=== PATIENT | male | born 1960 | race Caucasian/White ===

== ENCOUNTER 2024-01-28 09:43 | Outpatient (CLI) | payer MEDICAID, SELFPAY ==
--- NOTE | 2024-01-28 06:00 | DI.RAD_ITS ---
Exam(s) XR PAIN CLINIC LUMBAR SP 2V EXAM: XR PAIN CLINIC LUMBAR SP 2V CLINICAL HISTORY: DX: Lumbar Radiculopathy TECHNIQUE: 2D and realtime digital imaging was performed. Radiologist not present. CONTRAST MATERIAL: None. COMPARISON: No exams were available for comparison FINDINGS: Fluoroscopy was provided for pain management therapy. Please refer to procedure report or details. Radiation Exposure Index: Ka,r=9.97 mGy IMPRESSION: As above. RADIATION DOSE DELIVERED:
[2024-01-28 09:52] VITALS: BP 142/83; PULSE 88; RESP 20; TEMP 36.7; O2SAT 98
--- NOTE | 2024-01-28 10:19 | PDOC.PAIN_ITS ---
Date of service: 01/28/24 Time of Service: 10:55 Pain Managment Procedure Note Procedure Note Procedure Note: Lumbar Interlaminar Epidural Steroid Injection ? Location: Caudal ? Pre-procedure Diagnosis: M54.16- Radiculopathy, LUMBAR region ? Post-procedure Diagnosis:? The same as above ? Sedation:? 2mg of intravenous midazolam was administered.? An independent trained observer monitored the patient for the duration of the procedure.? None ? Medication: Depo-Medrol 80 mg, Omnipaque 1 mL ? Estimated blood loss:? less than 2 cc ? Surgeon:? Dedrick Nava MD COMMENT: Patient had previous attempts at [facility] for bilateral transforaminal's at L5 but had a abort because of too much pain. ? Procedure Detail:? The procedure and potential risks were explained to the patient and informed written consent was obtained. The patient was escorted to the procedure room and placed in the prone position. Pillows were utilized for proper positioning and comfort. Time out was performed in the procedure room with nursing staff confirming the patient's identity, procedure to be performed, allergies, and any blood thinning or anti-platelet medications.? The patient's neck and upper back was prepped with ChloraPrep and draped in a sterile fashion. Sterile technique was maintained throughout the procedure.? Sterile gloves were used, a face mask was worn, and new single dose vials of all medications were used with the top being swabbed with alcohol and given time to dry prior to withdrawal of medication. Lidocane 1% was used to anesthetize the skin.Using a 25-gauge 1.5 inch needle, 1% lidocaine was instilled into the superficial soft tissue overlying the targeted area to provide local anesthesia. With fluoroscopic guidance, a 17 -gauge Tuohy needle was advanced toward the interlaminar space of L5-S1. Spinous processes were very tight and I was unable to access the epidural space. Procedure was then converted to a caudal after repeat sterile prep and drape. Sacral hiatus was accessed without difficulty. Correct needle placement was confirmed through review of the AP and contralateral oblique fluoroscopic views. A 19-gauge arrow catheter was threaded cephalad to the midline L5 Following negative aspiration, one cc of Omnipaque 240 contrast was injected which confirmed good flow throughout the epidural space and no evidence of vascular flow or flow into adjacent compartments. Next, following negative aspiration, 2 cc's of normal saline and 80mg of Depo-Medrol and flushed with 1 mL 1% lidocaine. The needle was gently removed. The patient tolerated the proc edure well and was transported to the recovery area for observation and discharge instructions. Permanent images saved and recorded. Pain preprocedure 6/10 postprocedure 0/10 Plan:? Follow up prn. COMMENT: Repeat as needed
[2024-01-28 10:20] VITALS: PULSE 67
[2024-01-28 10:30] VITALS: PULSE 82; RESP 19
[2024-01-28 10:40] VITALS: PULSE 77; RESP 17; O2SAT 100
[2024-01-28] MEDS: methylPREDNISolone ACETATE 40 MG/ML VIAL IJ (11:00)
[2024-01-28] MEDS: Lidocaine 1% Pres-Free 5 ML VIAL IJ (11:00)
[2024-01-28] MEDS: Omnipaque 240 MG/ML 50 ML BTL IJ (11:01)
[2024-01-28] MEDS: Epidural Tray 1 EACH MC (11:01)
== END 2024-01-28 09:44 | disposition home or self-care (01) ==
LOC: PC 09:46
PROVIDERS: PCP Orthopaedic Surgery; Visit Provider Anesthesiology Pain Medicine
DX: M54.16 Radiculopathy, lumbar region (principal)
CPT/HCPCS: 00123; 62323; 72100; J1010; J2003; Q9967

== ENCOUNTER 2024-05-13 16:04 | Outpatient (CLI) | payer MEDICAID, SELFPAY ==
--- NOTE | 2024-05-13 14:30 | DI.RAD_ITS ---
Exam(s) XR HIP PELVIS ADULT BL EXAM: XR HIP PELVIS ADULT BL CLINICAL HISTORY: Bilateral hip pain, M25.551-pain in rt hip, M25.552-pain in lt hip. TECHNIQUE: 2D digital imaging was performed. Three views. COMPARISON: No exams were available for comparison FINDINGS: BONES: No acute fracture is present. No bony destructive lesion is seen. JOINTS: There is severe narrowing of both hip joint spaces, with a inkf-ex-rmmm appearance, right gre ater than left. There is flattening of the right femoral head and prominent spurring at the acetabul um. Subchondral cysts are seen on both sides of the joint. The left femoral head shows mild flatten ing. Subchondral cysts present. No dislocation present. SI joints and pubic symphysis are unremar kable. SOFT TISSUE: Vascular calcifications. IMPRESSION: Severe degenerative changes of both hips, right greater than left. DATA REPOSITORY: RADIATION DOSE DELIVERED:
--- OUTSIDE RECORDS SUMMARY | 2024-05-13 16:18 | XMS_ITS ---
Author Organization Unknown Address [address] [place] [address] [phone] Phone Care Team Providers Care Furniture Assembly Supervisor Name Role Phone HARIKA acosta Social History Type Status Start Date End Date Code Code Syst em Smoking History Current every day smoker [id number] SNOMED CT Sex Male Hospital Discharge Instructions Should you have any questions prior to discharge, please contact a member of your healthcare team. If you have left the hospital and have any questions, please contact your primary care physician. Reason For Referral No Data Found Implants Implanted MIYA Status Assigning Authority Procedure Date Lot Number Serial Number Manufacturing Date Expiration Date Distinct ID Code Brand Name Model Number Extra-gyna ecological surgical mesh, synthetic polymer, non-bioabs orbable 0100 8017 4101 6592 1724 1128 10HU DY16 78 Active FDA 02/09 [id number] 03/20/2024 Bard Mesh Perfix Plug [id number] Extra-gyna ecological surgical mesh, composite- polymer 0110 8845 2151 3167 1725 1031 10PW [id number] 2X20 02 Active FDA RIGHT INGUINAL HERNIA REPAIR WITH MESH 07/07 [id number] X2002 02/20/2025 ProGri p [id number] Allergies and Adverse Reactions Allergy Substance Reaction Severity Start Date Concern Status Co de Code System PENICILLIN UNKNOWN- FROM CHILDHOOD (SNOMED-CT: null) Active Plan of Treatment No Data Found Encounters Encounter Diagnosis Start Date Code Code Sys tem Inguinal hernia 03/29/2022 [id number] SNOMED-CT Personal Care Team Section Performer Name Performer Role Active Date Inactive Da te
--- OUTSIDE RECORDS SUMMARY | 2024-05-13 16:18 | XMS_ITS | Continuity of Care Document ---
Author Organization [facility] Address [address] [place] [address] Care Team Providers Care Irrigationist Designer Name Role Phone Geraldo Olivas Primary Care Physician [phone] Encounter [facility] Date(s): 01/24/24 - 01/24/24 [facility] [address] [place] [address] Encounter Diagnosis Tobacco user(Discharge Diagnosis) - 01/24/24 Discharge Disposition: Home or Self Care Attending Physician: Geraldo Olivas NP Admitting Physician: Geraldo Olivas NP Referring Physician: Geraldo Olivas VICE PRESIDENT OF PRODUCT MARKETING Allergies, Adverse Reactions, Alerts Substance Criticality Severity Reaction Reaction Severity Status penicillin Unable to assess criticality Unknown Active Assessment and Plan Future Appointments Immunizations Given and Recorded Vaccine Date Status Refusal Reason SARS-COV-2 (COVID-19) vaccine, unspecifi 08/03/21 Recorded SARS-COV-2 (COVID-19) vaccine, unspecifi 03/08/21 Recorded SARS-COV-2 (COVID-19) vaccine, unspecifi 08/25/20 Recorded SARS-COV-2 (COVID-19) vaccine, unspecifi 07/28/20 Recorded influenza, unspecified formulation 01/24/21 Record ed zoster vaccine, inactivated 1 02/14/16 Recorded pneumococcal 13-valent conjugate vaccine 05/04/15 Recorded tetanus/diphth/pertuss (Tdap) adult/adol 12/22/09 Recorded tetanus-diphth toxoids (Td) adult/adol 1/1/08 Re corded pneumococcal 7-valent vaccine 05/22/06 Recorded pneumococcal 23-polyvalent vaccine 05/22/06 Record ed 1Result Comment: Zoster live Medications gabapentin 100 mg oral capsule 100 mg = 1 cap, Oral, TID, Start with 100 mg at night, increase to BID after 1 week then TID after 2 weeks., # 90 cap, 0 Refill(s), Pharmacy: [facility] #58, 55.55, kg, 12/31/23 11:06:00 EDT, Weight Dosing Start Date: 12/31/23 Status: Ordered olmesartan-hydrochlorothiazide 40 mg-25 mg oral tablet 1 tab, Oral, Daily, # 30 tab, 0 Refill(s) Start Date: 12/19/23 Status: Ordered simvastatin 20 mg oral tablet 20 mg = 1 tab, Oral, every evening, # 30 tab, 0 Refill(s) Start Date: 12/19/23 Status: Ordered Tylenol Extra Strength 500 mg oral tablet 1,000 mg = 2 tab, Oral, every 6 hr, PRN as needed for pain, 0 Refill(s) Start Date: 12/19/23 Status: Ordered Problem List Condition Confirmation Course Effective Dates Status H ealth Status Informant Back pain 1 Confirmed Active Cerebrovascular accident (CVA) 2, 3 Confirmed 06/2013 Active DDD (degenerative disc disease), lumbar Confirmed Active Blood clotting disorder Confirmed Active Dyslipidemia Confirmed Active GERD (gastroesophageal reflux disease) Confirmed Active History of chronic pain Confirmed Active Hypertensive disorder Confirmed 09/24/17 Active Inguinal hernia, left Confirmed Active Lumbago with sciatica, right side Confirmed Active Lumbago with sciatica, left side Confirmed Active Migraine headache Confirmed Active Leg pain 4 Confirmed Active PVD (peripheral vascular disease) Confirmed Active Primary osteoarthritis of both hips Confirmed Active Sliver 5 Confirmed Active 1per NPP 2Embolic CVA right frontal/parietal/occipital lobes 3Historical 4per NPP 5in foot per NPP Procedures Procedure Date Related Diagnosis Body Site Status MRI of lumbar spine 12/05/23 Compl eted Injection 1 11/2022 Completed Hernia repair 2 07/06/22 Completed Carotid endarterectomy 2012 Co mpleted 1Lumbar 2Right Social History Social History Type Response Tobacco Current everyday tob acco user Tobacco Use:. 20 cigs per day per day. 41 year(s). Sex Male Sex Representation Male (finding) Patient Care team information Care Team Personnel Name: Geraldo Olivas VICE PRESIDENT OF PRODUCT MARKETING Position: Physician Member Role: Primary Care Physician Address: [address] [place] [address] [place] [address] Care Team Related Persons Name: STEFAN DEL ROSARIO Name: CHERYL MILLER Insurance Providers Guarantor name: CHRISTIN MORGAN Health Plan Information #: 1 Payer: [employer] [place] [employer] Member Number: [id number] Policy Number: NA Health Plan Information #: 2 Payer: [employer] [place] [employer] Member Number: [id number] Policy Number: NA
--- OUTSIDE RECORDS SUMMARY | 2024-05-13 16:18 | XMS_ITS ---
Author Organization Unknown Address [address] [place] [address] [phone] Phone Care Team Providers Care Stud Driver Name Role Phone HARIKA acosta Social History Type Status Start Date End Date Code Code Syst em Smoking History Current every day smoker [id number] SNOMED CT Sex Male Hospital Discharge Instructions [...] 1128 10HU DY16 78 Active FDA 02/09 [id number] 03/20/2024 Bard Mesh Perfix Plug [id number] Extra-gyna ecological surgical mesh, composite- polymer 0110 8845 2151 3167 1725 1031 10PW K185 2X20 02 Active FDA RIGHT INGUINAL HERNIA REPAIR WITH MESH 07/07 [id number] X2002 02/20/2025 ProGri p [id number] AR Allergies and Adverse Reactions Allergy Substance Reaction Severity Start Date Concern Status Co de Code System PENICILLIN UNKNOWN- FROM CHILDHOOD (SNOMED-CT: null) Active Plan of Treatment No Data Found Encounters Encounter Diagnosis Start Date Code Code Sys tem Canceled operative procedure 05/19/2022 40119206 SNOMED-CT Personal Care Team Section Performer Name Performer Role Active Date Inactive Da te
--- OUTSIDE RECORDS SUMMARY | 2024-05-13 16:18 | XMS_ITS | Continuity of Care Document ---
Author Organization [facility] Address [address] [place] [address] Care Team Providers Care Manager Traffic Name Role Phone Geraldo Olivas Primary Care Physician Encounter [place] Date(s): 05/07/24 - 05/07/[address] [address] Encounter Diagnosis Lung nodule(Discharge Diagnosis) - 05/07/24 Discharge Disposition: Home or Self Care Attending Physician: Geraldo Olivas NP Admitting Physician: Geraldo Olivas NP Referring Physician: Geraldo Olivas NP Encounter Type: Outpatient Allergies, Adverse Reactions, Alerts Substance Criticality Severity [...] adult/adol 12/22/09 Recorded tetanus-diphth toxoids (Td) adult/adol 04/23/07 Re corded pneumococcal 7-valent vaccine 05/22/06 Recorded pneumococcal 23-polyvalent vaccine 05/22/06 Record ed 1Result Comment: Zoster live Medications olmesartan-hydrochlorothiazide 40 mg-25 mg oral tablet 1 tab, Oral, Daily, # 30 tab, 0 Refill(s) Start Date: 12/19/23 Status: Ordered Quantity: 30.0 Unit: tab Repeat number: 1 Tylenol Extra Strength 500 mg oral tablet 1,000 mg = 2 tab, Oral, every 6 hr, PRN as needed for pain, 0 Refill(s) Start Date: 12/19/23 Status: Ordered Repeat number: 1 Problem List Condition Confirmation Course Effective Dates [...] information Care Team Personnel Name: Geraldo Olivas VENEER JOINTER OPERATOR Position: Physician Member Role: Primary Care Physician Address: [address] [place] [address] [place] [address] [employer]: Care Team Related Persons Name: STEFAN DEL ROSARIO Name: CHERYL MILLER Insurance Providers Guarantor name: CHRISTIN MORGAN Health Plan Information #: 1 Payer: [facility] MEDICAID Member Number: [id number] Policy Number: NA Group Number: NA Health Plan Information #: 2 Payer: [employer] [place] [employer] Member Number: [id number] Policy Number: NA Group Number: NA
--- OUTSIDE RECORDS SUMMARY | 2024-05-13 16:18 | XMS_ITS | Continuity of Care Document ---
Author Organization [facility] Address [address] [place] [address] Care Team Providers Care Ordnance Truck Installation Supervisor Name Role Phone Geraldo Olivas Primary Care Physician Encounter [facility] Date(s): 01/28/24 - 01/28/24 [facility] [address] [place] [address] Discharge Disposition: Home Allergies, Adverse Reactions, Alerts Substance Criticality Severity Reaction Reaction Severity Status penicillin Unable to assess criticality Unknown Active Assessment and Plan Future Appointments Future Scheduled Tests Radiology* CT Low Dose Lung Follow Up 01/28/24 Immunizations Given and Recorded Vaccine Date Status [...] weeks., # 90 cap, 0 Refill(s), Pharmacy: [facility] #58, 55.55, kg, 12/31/23 11:06:00 EDT, Weight [...] information Care Team Personnel Name: Geraldo Olivas NP Position: Physician Member Role: Primary Care Physician Address: [address] [place] [address] [place] [address] [place] Care Team Related Persons Name: STEFAN DEL ROSARIO Name: CHERYL MILLER Insurance Providers Guarantor name: CHRISTIN MORGAN [facility] Plan Information #: 1 Payer: [employer] [place] [employer] Member Number: NA Policy Number: NA
--- OUTSIDE RECORDS SUMMARY | 2024-05-13 16:18 | XMS_ITS ---
Author Organization Unknown Address [address] [place] [address] [phone] Phone Care Team Providers Care Front Sight Attacher Name Role Phone HARIKA Velez Attending Unavaila ble Results CBC W/ DIFFERENTIAL* - Colle ct Date/Time: 05/09/2022 11:18 [facility] ID: [id number] [address] [place] [address], [address] LOINC: 76831-7 Test Value Unit Reference Range Code Code System Flag WBC 8.38 th/cmm L=5.00 H=10.00 6690-2 LOINC NEUT % 66.9 % L=40.0 H=80.0 LYMPH % 21.5 % L=10.0 H=50.0 MONO % 9.7 % L=2.0 H=12.0 85022-3 LOINC EOS % 0.8 % L=0.0 H=8.0 BASO % 0.6 % L=0.0 H=3.0 IG % 0.5 % L=0.0 H=1.1 2514-8 LOINC NRBC % 0.0 % L=0.0 H=0.0 78385-7 LOINC NEUT abs count 5.6 th/cmm L=1.6 H=8.4 751-8 LOINC LYMPH abs count 1.8 th/cmm L=1.5 H=4.0 731-0 LOINC MONO abs count 0.8 th/cmm L=0.2 H=1.0 742-7 LOINC EOS abs count 0.1 th/cmm L=0.0 H=0.5 711-2 LOINC BASO abs count 0.1 th/cmm L=0.0 H=0.2 704-7 LOINC IG abs count 0.0 th/cmm L=0.0 H=0.1 38517-6 LOINC NRBC abs count 0.0 mil/cmm L=0.0 H=0.0 97697-8 LOINC RBC 4.67 mil/cmm L=4.30 H=6.20 789-8 LOINC HEMOGLOBIN 15.4 gm/dL L=13.0 H=17.0 718-7 LOINC HEMATOCRIT 46 % L=45 H=52 4544-3 LOINC MCV 97 fL L=82 H=92 787-2 LOINC H MCH 33.0 pg L=27.0 H=31.0 785-6 LOINC H MCHC 33.8 % L=32.0 H=36.0 786-4 LOINC RDW-SD 44.2 fL L=39.0 H=49.0 788-0 LOINC PLATELET COUNT 279 th/cmm L=150 H=450 777-3 LOINC COMPREHENSIVE METABOLIC PANE L (CMP) - Collect Date/Time: 05/09/2022 11:18 [facility] ID: [id number] [address] [place], [place], [address] LOINC: 17903-2 Test Value Unit Reference Range Code Code System Flag GLUCOSE 98 mg/dL L=70 H=116 2345-7 LOINC BUN 13 mg/dL L=6 H=25 3094-0 LOINC CREATININE 0.68 mg/dL L=0.67 H=1.17 2160-0 LOINC SODIUM SERUM 136 mmol/L L=136 H=145 2951-2 LOINC POTASSIUM SERUM 4.7 mmol/L L=3.4 H=5.2 2823-3 LOINC CHLORIDE SERUM 101 mmol/L L=96 H=110 2075-0 LOINC CARBON DIOXIDE (CO2) 27 mmol/L L=22 H=34 2028-9 LOINC ANION GAP 7.8 mmol/L 12529-1 LOINC CALCIUM SERUM 8.9 mg/dL L=8.2 H=10.2 84566-1 LOINC BILIRUBIN TOTAL 0.6 mg/dL L=0.0 H=1.3 1975-2 LOINC ALK. PHOS. 68 U/L L=46 H=116 6768-6 LOINC SGOT (AST) 27 U/L L=15 H=37 1920-8 LOINC SGPT (ALT) 43 U/L L=12 H=78 1742-6 LOINC TOTAL PROTEIN 7.1 gm/dL L=6.0 H=8.0 2885-2 LOINC ALBUMIN 3.9 gm/dL L=3.4 H=5.0 1751-7 LOINC AGE 61 years eGFR (non-Afr.Amer.) 119 mL/min 76690-3 LOINC eGFR (Afr-Bermudian) > 120 mL/min 63052-9 LOINC Social History Type Status Start Date End Date Code Code Syst em Smoking History Current every day smoker 228880526 SNOMED CT Sex Male Hospital Discharge Instructions [...] 1128 10HU DY16 78 Active FDA 02/09 [id number] 03/20/2024 Bard Mesh Perfix Plug [id number] Extra-gyna ecological surgical mesh, composite- polymer 0110 8845 2151 3167 1725 1031 10PW K185 2X20 02 Active FDA RIGHT INGUINAL HERNIA REPAIR WITH MESH 07/07 [id number] X2002 02/20/2025 ProGri p [id number] AR Allergies and Adverse Reactions Allergy Substance Reaction Severity Start Date Concern Status Co de Code System PENICILLIN UNKNOWN- FROM CHILDHOOD (SNOMED-CT: null) Active Plan of Treatment No Data Found Encounters Encounter Diagnosis Start Date Code Code Sys tem Pre-surgery evaluation 05/09/2022 [id number] [place] Personal Care Team Section Performer Name Performer Role Active Date Inactive Da te
--- OUTSIDE RECORDS SUMMARY | 2024-05-13 16:18 | XMS_ITS ---
Author Organization Unknown Address [address] [place] [address] [phone] Phone Care Team Providers Care Counter Pocket Trimmer Name Role Phone ROBERT JADA Langston Attending Unavailable NILA Alvarez Primary Unavailable Results RT LAMP COVID TEST CLINIC ON LY* - Collect Date/Time: 05/19/2022 11:18 [facility] ID: [id number] [address] [place] [address], [address] LOINC: 88583-2 Test Value Unit Reference Range Code Code System Flag RESULTS NEGATIVE 33522-0 LOINC PERFORMED BY Leigh COTTRELL LPN VERIFIED BY Bridget CONDON MD Social History Type Status Start Date End Date Code Code Syst em Smoking History Current every day smoker 993501696 SNOMED CT Sex Male Hospital Discharge Instructions [...] 1128 10HU DY16 78 Active FDA 02/09 [id number] 8 03/20/2024 Bard Mesh Perfix Plug [id number] Extra-gyna ecological surgical mesh, composite- polymer 0110 8845 2151 3167 1725 1031 10PW K185 2X20 02 Active FDA RIGHT INGUINAL HERNIA REPAIR WITH MESH 07/07 [id number] X2002 02/20/2025 ProGri p [id number] AR Allergies and Adverse Reactions Allergy Substance Reaction Severity Start Date Concern Status Co de Code System PENICILLIN UNKNOWN- FROM CHILDHOOD (SNOMED-CT: null) Active Plan of Treatment No Data Found Encounters Encounter Diagnosis Start Date Code Code Sys tem Encounter for preprocedural laboratory examination SNOMED-CT Personal Care Team Section Performer Name Performer Role Active Date Inactive Da te
--- OUTSIDE RECORDS SUMMARY | 2024-05-13 16:18 | XMS_ITS | Continuity of Care Document ---
Author Organization [facility] Address [address] [place] [address] Care Team Providers Care Canary Raiser Name Role Phone Rachna Orozco Primary Care Physician Encounter [place] Date(s): 12/06/23 - 12/06/23 [facility] [address] [place] [address] Discharge Disposition: Home or Self Care Attending Physician: Jules Long MD Admitting Physician: Jules Long MD Referring Physician: Jules Long MD Social History Social History Type Response Sex Male Patient Care team information Care Team Personnel Name: Rachna Orozco DATA REPORTING ANALYST-C Position: No Access Member Role: Primary Care Physician Address: Address: [facility] [address] [place] [phone] [place] Care Team Related Persons Name: CHERYL MILLER
--- OUTSIDE RECORDS SUMMARY | 2024-05-13 16:19 | XMS_ITS ---
Author Organization Unknown Address [address] [place] [address] [phone] Phone Care Team Providers Care Neurology Stroke Physician Name Role Phone HARIKA Velez Attending Cristian Alvarez Primary Unavailable Social History Type Status Start Date End Date Code Code Syst em Smoking History Current every day smoker 998590073 SNOMED CT Sex Male Hospital Discharge Instructions [...] 1128 10HU DY16 78 Active FDA 02/09 [id number] 8 03/20/2024 Bard Mesh Perfix Plug [id number] Extra-gyna ecological surgical mesh, composite- polymer 0110 8845 2151 3167 1725 1031 10PW K185 2X20 02 Active FDA RIGHT INGUINAL HERNIA REPAIR WITH MESH 07/07 [id number] X2002 02/20/2025 ProGri p [id number] AR Allergies and Adverse Reactions Allergy Substance Reaction Severity Start Date Concern Status Co de Code System PENICILLIN UNKNOWN- FROM CHILDHOOD (SNOMED-CT: null) Active Plan of Treatment No Data Found Encounters Encounter Diagnosis Start Date Code Code Sys tem Inguinal hernia 06/20/2022 965308490 SNOMED-CT Personal Care Team Section Performer Name Performer Role Active Date Inactive Da te
--- OUTSIDE RECORDS SUMMARY | 2024-05-13 16:20 | XMS_ITS ---
Author Organization Unknown Address [address] [place] [address] [phone] Phone Care Team Providers Care Ophthalmology Assistant Name Role Phone HARIKA Velez Attending Cristian Alvarez Primary Unavailable Social History Type Status Start Date End Date Code Code Syst em Smoking History Current every day smoker 853390195 SNOMED CT Sex Male Hospital Discharge Instructions [...] 1128 10HU DY16 78 Active FDA 02/09 [id number] 8 03/20/2024 Bard Mesh Perfix Plug [id number] Extra-gyna ecological surgical mesh, composite- polymer 0110 8845 2151 3167 1725 1031 10PW K185 2X20 02 Active FDA RIGHT INGUINAL HERNIA REPAIR WITH MESH 07/07 [id number] X2002 02/20/2025 ProGri p [id number] AR Allergies and Adverse Reactions Allergy Substance Reaction Severity Start Date Concern Status Co de Code System PENICILLIN UNKNOWN- FROM CHILDHOOD (SNOMED-CT: null) Active Plan of Treatment No Data Found Encounters Encounter Diagnosis Start Date Code Code Sys tem Canceled operative procedure 07/27/2022 80153290 SNOMED-CT Personal Care Team Section Performer Name Performer Role Active Date Inactive Da te
--- OUTSIDE RECORDS SUMMARY | 2024-05-13 16:20 | XMS_ITS ---
Author Organization Unknown Address [address] [place] [address] [phone] Phone Care Team Providers Care Stone Hand Name Role Phone NILA Alvarez Attending Unavailable Results XR LS SPINE 4V OR MORE - Com pleted: 07/20/2022 11:39 LOINC: [facility] [place], [place] [address] PACS ANTIQUE CLOCKS REPAIRER REPORT Patient Name: PRIYANKA MORGAN MRN: Sex: : Age: [id number] M 1960 62 Account: Accession: Admit: StayType: [id number] 07/20/2022 O/P Ordered: Order ID: Submitted: Ordering Provider: 07/20/2022 10:53 [id number] AIDA LYLES Completed: Technologist: Resulted: 07/20/2022 10:53 07/20/2022 11:21 Study Description: XR LS SPINE 4V OR MORE Study Reason: LUMBAGO 5 images were obtained. COMPARISON: None. FINDINGS: There are 5 lumbar-type vertebral bodies. There is a mild right convex thoracolumbar scoliosis. 2 to 3 mm retrolisthesis of L3 on L4 is noted. There is no spondylolysis or spondylolisthesis. Disc base narrowing is seen at L3-L4. There are endplate osteophytes throughout the lumbar spine. No acute fracture or subluxation is seen. There are degenerative changes of the facets seen at L4-5 and L5-S1. There are marked degenerative changes seen at the hips particularly on the right where there is loss of the superior joint space and periarticular spurring. Atherosclerosis is present. IMPRESSION: 1. Moderately severe degenerative changes of the lumbar spine. 2. Degenerative changes of the hips which were incompletely imaged. Report Digitally Signed by Drew Vinson on 07/20/2022 11:21 AM EDT 07/20/[email or web address] NILA Alvarez via modem Social History Type Status Start Date End Date Code Code Syst em Smoking History Current every day smoker 810149505 StylePuzzle CT Sex Male Hospital Discharge Instructions Should [...] 1128 10HU DY16 78 Active FDA 02/09 [id number] 03/20/2024 Bard Mesh Perfix Plug [id number] Extra-gyna ecological surgical mesh, composite- polymer 0110 8845 2151 3167 1725 1031 10PW K185 2X20 02 Active FDA RIGHT INGUINAL HERNIA REPAIR WITH MESH 07/07 [id number] X2002 02/20/2025 ProGri p [id number] AR Allergies and Adverse Reactions Allergy Substance Reaction Severity Start Date Concern Status Co de Code System PENICILLIN UNKNOWN- FROM CHILDHOOD (SNOMED-CT: null) Active Plan of Treatment No Data Found Encounters Encounter Diagnosis Start Date Code Code Sys tem Degeneration of lumbar intervertebral disc 07/20/2022 65699927 StylePuzzle-CT Personal Care Team Section Performer Name Performer Role Active Date Inactive Da te
--- OUTSIDE RECORDS SUMMARY | 2024-05-13 16:20 | XMS_ITS ---
Author Organization Unknown Address [address] [place] [address] [phone] Phone Care Team Providers Care Bone Cooking Operator Name Role Phone HARIKA Velez Attending Cristian acosta Social History Type Status Start Date End Date Code Code Syst em Smoking History Current every day smoker 210937170 SNOMED CT Sex Male Hospital Discharge Instructions [...] 1128 10HU DY16 78 Active FDA 02/09 [id number] 8 03/20/2024 Bard Mesh Perfix Plug [id number] Extra-gyna ecological surgical mesh, composite- polymer 0110 8845 2151 3167 1725 1031 10PW K185 2X20 02 Active FDA RIGHT INGUINAL HERNIA REPAIR WITH MESH 07/07 [id number] X2002 02/20/2025 ProGri p [id number] AR Allergies and Adverse Reactions Allergy Substance Reaction Severity Start Date Concern Status Co de Code System PENICILLIN UNKNOWN- FROM CHILDHOOD (SNOMED-CT: null) Active Plan of Treatment No Data Found Encounters Encounter Diagnosis Start Date Code Code Sys tem Inguinal hernia 07/07/2022 298320504 SNOMED-CT Personal Care Team Section Performer Name Performer Role Active Date Inactive Da te
--- OUTSIDE RECORDS SUMMARY | 2024-05-13 16:21 | XMS_ITS ---
Author Organization Unknown Address [address] [place] [address] [phone] Phone Care Team Providers Care Canvas Shop Laborer Name Role Phone HARIKA Velez Attending Cristian NIETO CAUSTICS LOADER Unavailable NILA Alvarez Primary Unavailable Social History Type Status Start Date End Date Code Code Syst em Smoking History Current every day smoker 751133400 SNOMED CT Sex Male Vital Signs Vital Sign Value Unit [place] Value [place] Unit Date/Time Recent/Initial? Code Code System Body Mass Index 20.06 kg/m2 01/24/2023 14:19 Initial 06444 -5 INC Systolic Blood Pressure 148 mm[Hg] 02/09/2023 13:46 Initial 8480- 6 LOINC Diastolic Blood Pressure 93 mm[Hg] 02/09/2023 13:46 Initial 8462- 4 LOINC Body Surface Area 1.68 m2 01/24/2023 14:19 Initial 3140- 1 LOINC Height 171.450 0 cm 67.50 in 01/24/2023 14:19 Initial 8302- 2 LOINC O2 Saturation 98 % 2022 13:46 Initial 04798 -5 LOINC Pulse 77.0 /min 02/09/2023 13:46 Initial 8867- 4 LOINC Respiration 14 /min 02/10/20 13:46 Initial 9279- 1 LOINC Temperature 36.5 Savita 97.7 F 02/10/20 13:46 Initial 8310- 5 LOINC Weight 58.97 kg 130.00 lbs 01/24/2023 14:19 Initial 27150 -7 [facility] Hospital Discharge Instructions Should you have any questions prior to discharge, please contact a member of your healthcare team. If you have left the hospital and have any questions, please contact your primary care physician. Reason For Referral No Data Found Procedures Procedure Name Date Status Code Code Estrella m Repair, Initial Inguinal Her judson, Age 5+; Reducible 02/09/2023 completed 06397 CPT Anesthesia, Hernia Repairs, Lower Abdomen; NOS 02/09/2023 completed 49862 CPT Implants Implanted MIYA Status Assigning Authority Procedure Date Lot Number Serial Number Manufacturing Date Expiration Date Distinct ID Code Brand Name Model Number Extra-gyna ecological surgical mesh, synthetic polymer, non-bioabs orbable 0100 8017 4101 6592 1724 1128 10HU DY16 78 Active FDA 02/09 [id number] 03/20/2024 Bard Mesh Perfix Plug [id number] Extra-gyna ecological surgical mesh, composite- polymer 0110 8845 2151 3167 1725 1031 10PW K185 2X20 02 Active FDA RIGHT INGUINAL HERNIA REPAIR WITH MESH 07/07 [id number] X2002 02/20/2025 ProGri p [id number] Allergies and Adverse Reactions Allergy Substance Reaction Severity Start Date Concern Status Co de Code System PENICILLIN UNKNOWN- FROM CHILDHOOD (SNOMED-CT: null) Active Plan of Treatment No Data Found Encounters Encounter Diagnosis Start Date Code Code Sys tem Unilateral inguinal hernia, without obstruction or gangrene, not specified as recurrent 02/09/2023 SNO MED-CT Personal Care Team Section Performer Name Performer Role Active Date Inactive Da te
--- OUTSIDE RECORDS SUMMARY | 2024-05-13 16:21 | XMS_ITS ---
Author Organization Unknown Address [address] [place] [address] [phone] Phone Care Team Providers Care Pediatric Rn Name Role Phone HARIKA Velez Attending Cristian Alvarez Primary Unavailable Results CBC W/ DIFFERENTIAL* - Colle ct Date/Time: 01/18/2023 11:23 [facility] ID: [id number] [address] [place] [address], [address] LOINC: 80085-1 Test Value Unit Reference Range Code Code System Flag WBC 5.44 th/cmm L=5.00 H=10.00 6690-2 LOINC NEUT % 49.6 % L=40.0 H=80.0 LYMPH % 32.0 % L=10.0 H=50.0 MONO % 13.6 % L=2.0 H=12.0 97174-2 LOINC H EOS % 3.5 % L=0.0 H=8.0 BASO % 0.9 % L=0.0 H=3.0 IG % 0.4 % L=0.0 H=1.1 2514-8 LOINC NRBC % 0.0 % L=0.0 H=0.0 22752-5 LOINC NEUT abs count 2.7 th/cmm L=1.6 H=8.4 751-8 LOINC LYMPH abs count 1.7 th/cmm L=1.5 H=4.0 731-0 LOINC MONO abs count 0.7 th/cmm L=0.2 H=1.0 742-7 LOINC EOS abs count 0.2 th/cmm L=0.0 H=0.5 711-2 LOINC BASO abs count 0.1 th/cmm L=0.0 H=0.2 704-7 LOINC IG abs count 0.0 th/cmm L=0.0 H=0.1 30681-2 LOINC NRBC abs count 0.0 mil/cmm L=0.0 H=0.0 11582-1 LOINC RBC 4.84 mil/cmm L=4.30 H=6.20 789-8 LOINC HEMOGLOBIN 15.0 gm/dL L=13.0 H=17.0 718-7 LOINC HEMATOCRIT 46 % L=45 H=52 4544-3 LOINC MCV 94 fL L=82 H=92 787-2 LOINC H MCH 31.0 pg L=27.0 H=31.0 785-6 LOINC MCHC 32.9 % L=32.0 H=36.0 786-4 LOINC RDW-SD 44.1 fL L=39.0 H=49.0 788-0 LOINC PLATELET COUNT 237 th/cmm L=150 H=450 777-3 LOINC BASIC METABOLIC PANEL (BMP) - Collect Date/Time: 01/18/2023 11:23 [facility] ID: [id number] [address] [place] [address], [address] LOINC: 53518-9 Test Value Unit Reference Range Code Code System Flag GLUCOSE 74 mg/dL L=70 H=116 2345-7 LOINC BUN 20 mg/dL L=6 H=25 3094-0 LOINC CREATININE 1.11 mg/dL L=0.67 H=1.17 2160-0 LOINC SODIUM SERUM 137 mmol/L L=136 H=145 2951-2 LOINC POTASSIUM SERUM 4.3 mmol/L L=3.4 H=5.2 2823-3 LOINC CHLORIDE SERUM 99 mmol/L L=96 H=110 2075-0 LOINC CARBON DIOXIDE (CO2) 32 mmol/L L=22 H=34 2028-9 LOINC ANION GAP 5.9 mmol/L 61870-4 LOINC CALCIUM SERUM 9.1 mg/dL L=8.2 H=10.2 68922-7 LOINC AGE 62 years eGFR (non-Afr.Amer.) 67 mL/min 12902-8 LOINC eGFR (Afr-Armenian) 81 mL/min 22858-4 LOINC Social History Type Status Start Date End Date Code Code Syst em Smoking History Current every day smoker 399705635 SNOMED CT Sex Male Hospital Discharge Instructions [...] 1128 10HU DY16 78 Active FDA 02/09 [id number] 8 03/20/2024 Bard Mesh Perfix Plug [id number] Extra-gyna ecological surgical mesh, composite- polymer 0110 8845 2151 3167 1725 1031 10PW K185 2X20 02 Active FDA RIGHT INGUINAL HERNIA REPAIR WITH MESH 07/07 [id number] X2002 02/20/2025 ProGri p [id number] AR Allergies and Adverse Reactions Allergy Substance Reaction Severity Start Date Concern Status Co de Code System PENICILLIN UNKNOWN- FROM CHILDHOOD (SNOMED-CT: null) Active Plan of Treatment No Data Found Encounters Encounter Diagnosis Start Date Code Code Sys tem Inguinal hernia 01/18/2023 939121580 SNOMED-CT Personal Care Team Section Performer Name Performer Role Active Date Inactive Da te
--- OUTSIDE RECORDS SUMMARY | 2024-05-13 16:22 | XMS_ITS | Encounter Summary ---
Author Organization [facility] Address [address] [place] [address] Care Team Providers Care Plisse Machine Operator Name Role Phone Unknown, Provider MD Primary Care Provider Unava ilable Reason for Visit * Reason Comments Back Pain B/l l5s1 TFESI / pa not req * Prior Authorization (Routine) - Authorization Not Required Specialty Diagnoses / Procedures Referred By [facility] t Referred To Contact Pain Medicine Diagnoses Other spondylosis with radiculopathy, lumbar region b/l L5S1 TFESI / pa pending Procedures OR NJX AA&/STRD TFRML EPI LUMBAR/SACRAL 1 LEVEL PAIN CLINIC PROCEDURE [facility] [address] [place] [address] Phone: tel: fax: Jules Long MD [address] [place] [phone] Phone: tel: fax: Referral ID Status Reason Start Date Expiration Date Visits Requested Visits Authorized [id number] Authorization Not Required 1 1 Encounter Details Date Type Department Care Team (Latest Contact Info) Description 12/20/2023 14:30 EDT Office Visit [facility]ventional Pain [address] [place] [address] Jules Long MD [address] [phone] Other spondylosis with radiculopathy, lumbar region (Primary Dx) Social History Tobacco Use Types Packs/Day Years Used Date Smoking Tobacco: Never Assessed Sex and Gender Information Value Date Recorded Sex Assigned at Not on file Legal Sex Male 14:48 EST Gender Identity Male 05/17/2023 14:53 EST Sexual Orientation Not on file documented as of this encounter Last Filed Vital Signs Vital Sign Reading Time Taken Comments Blood Pressure 176/83 12/20/2023 1520 EDT On BP meds Pulse 59 12/20/2023 1520 EDT Temperature 36.4 ??C (97.5 ??F) 12/20/2023 1444 EDT Respiratory Rate 16 12/20/2023 1444 EDT Oxygen Saturation 98% 12/20/2023 1444 EDT Inhaled Oxygen Concentration - - Weight - - Height - - Body Mass Index - - documented in this encounter Patient Instructions * Patient Instructions* Marie Mckeon RN - 12/20/2023 14:30 EDT [facility] [address] [phone] Patient Instructions You have had your bilateral lumbosacral Transforaminal Epidural Steroid Injection. The purpose of this procedure has been to place medication which may help relieve your pain. Steroid may be used to decrease the swelling and nerve irritation which may be causing your pain. The following information should help you over the next few days regarding what you may expect. Please take it easy for the rest of today. DO NOT drive a car for the remainder of the day. If you feel sore where the needle(s) entered for the block or develop a flare-up of pain over the next few days, please use ice on the area. You may leave the ice on for up to 20 minutes at a time. Do not use heat, as this may cause swelling. As long as your primary doctor has indicated no restrictions, you may take a mild pain medicine, such as acetaminophen (Tylenol), ibuprofen (Advil, Nuprin, Motrin IB, etc.) or aspirin, if needed. The steroid injection usually takes a few days to become effective. On average, you may notice somerelief in 3 -5 days. However, it may take up to 10 - 14 days to know whether the injection was helpful. If the block causes numbness/weakness, it should wear off within a few hours. If the area that the needle(s) were inserted becomes hot, red, swollen, or increasingly tender, or if you develop a fever (100.5 or greater) or chills along with these symptoms, please call our office immediately. If you develop increasingly severe back pain, continued numbness or weakness of the legs or changesin your bladder or bowel functions, please call our office immediately. Instructions for follow-up If you have any questions about your block, please call Patient Education Topic: Method: Handout and Verbal Taught to: Patient Barriers: None Outcomes: verbalized understanding MARIE MCKEON RN documented in this encounter Progress Notes * Shahab Johnson MA - 12/20/2023 1430 EDT [facility] Rooming Note Does patient have a Fire Pot Operator? yes Is patient NPO? (Solids since midnight & liquids for 4 hrs) Pancakes and ice coffee Blood Thinners: Is patient on Blood Thinners? no If yes, taking? no If stopped, who authorized stopping? NA Related comments: NA Infections: Any recent infections, fever of illnesses? no If on antibiotics, is it 7-10 days past the date of completion of antibiotics? no : (for females of child-bearing age) Is there a chance current ? NA Do you have any type of implanted device? no Vaccination: Have you had or are you planning to have a vaccination in the 2 weeks? no Other: no * Jules Long MD - 12/20/2023 1430 EDT Patient Name: Dmitriy Celestin : 1960 Date of Service: 12/20/23 Plant Maintenance Supervisor: MD Ethan Procedure: Lumbar transforaminal epidural steroid injections at L5S1 b/l Interval History: Patient currently denies any progressive weakness, unexplained fever, trauma or unexplained weight loss. Details of the current complaint are thoroughly described in the consultation notes from theirlast evaluation with me, including pain onset, location, course, workup, therapeutic attempts, and associated functional limitations. The patient reports no recent changes in the character, quality, or distribution of the pain. All previous medical records including current medications, anticoagulation status, any signs of current infection, and new imaging were reviewed. Injection History: 12/20/23: lumbar transforaminal epidural steroid injections at L5S1, TFESI - could not complete due to pain on injection Allergies: No Known Allergies Review of Systems: Negative for any fever, chills, nausea/vomiting, headaches, chest pain, palpitations, shortness of breath, bladder/bowel incontinence. No easy bruising, bleeding, anti-coagulation or known recent infections. Physical Exam: Vitals: BP (!) 176/83 (BP Cuff Location: Right arm, BP Patient Position: Sitting, BP Cuff Sizes: Adult, long) Comment: On BP meds Pulse 59 Temp 36.4 ??C (97.5 ??F) (Tympanic) Resp 16 SpO2 98% General: Patient is alert and oriented, no acute distress Lungs: symmetric chest rise, no evidence of labored breathing Skin: clear, warm, dry and intact and no rashes, bruises or petechiae noted Exam otherwise unchanged from prior Assessment: 1. Other spondylosis with radiculopathy, lumbar region Plan: All risks, benefits, and alternatives were thoroughly explained to the patient who verbally communicated understanding of the management plan. Proceed with transforaminal epidural steroid injection at level documented. PROCEDURE: The patient gave informed written consent to proceed with this procedure following a detailed discussion of the risks and benefits associated with transforaminal epidural steroid injection in the lumbar spineincluding but not limited to infection, bleeding, headache, intrathecal injection, allergic reaction, further exacerbation of current symptoms, neurological injury, and lack of efficacy. The patient was then placed in the prone position, the skin over the lumbosacral area was marked and prepped with chlorhexadine, and the site was draped with sterile towels. Strict sterile technique was maintained throughout the procedure. A timeout was performed with full staff present to identify the patient, verify the procedure being performed, and review allergies. Flouoroscopy was used to visualize the appropriate neuroforamen. The skin and subcutaneous tissue over this level was anesthetized by infiltration of lidocaine. A 22G spinal needle was inserted underfluoroscopic guidance using coaxial technique. The needle was slowly advanced by posterolateral approach to the superior aspect of the foramen. Fluoroscopic images in the AP and lateral views were taken to confirm final needle tip position in the distal foramen. No parasthesias occurred during needle insertion and aspiration was negative. Contrast dye was injected under live fluoroscopy and revealed good spread along the correct nerve root with no evidence of intravascular or intrathecal uptake. After negative aspiration, we attempted to inject steroid but it was too painful for the patient to tolerate. Not wanting to damage any structure, we aborted. The needle was then flushed and withdrawn. Discharged in stable condition. Written and verbal discharge instructions were reviewed with the patient prior to discharge. My plan is to attempt in interlaminar MAMADOU as there might be more space and more likelihood of success. Fluoroscopic spot images were saved during the procedure. MD Ethan * Marie Mckeon RN - 12/20/2023 1430 EDT ATTENTION: This Checklist should be reviewed with the patient, provider, nurse/MA, and automotive brake technician in the room prior to local anesthetic administration. Site marking is to be done prior to patient being put in to position, preferably when initial exam is done. Sterile field, meds, abd flouro images should be prepared prior to the FINAL VERIFICATION/TIME-OUT. All activity in the room will cease so all team members participate in the surgical brief and have meaningful communication. The Attending is responsible for leading the final verification/lafleur moment process. The Nurse/MA will have in her possession the signed consent and the checklist when the surgical pause is performed so written and verbal verification are concluded to be in agreement. [Verified] Patient identifier #1: Full Name [Verified] Patient Identifier #2: Date of [Verified] Allergy to iodine, steroids, local anesthetics, band-aids? [Verified] Location of pain: Patient response: Left vs Right; cervical, thoracic, lumbar, etc. (verified written on consent) [Verified] Site marked [Verified] Safety devices in place: Grounding pad; X-rays available. [Verified] Consent signed in chart [Verified] Consented procedure matches scheduled procedure. Procedure aborted. documented in this encounter Plan of Treatment Not on file documented as of this encounter Visit Diagnoses Diagnosis Other spondylosis with radiculopathy, lumbar region- Primary documented in this encounter Administered Medications Inactive Administered Medications - up to 3 most recent administrations Medication Order MAR Action Action Date Dose Rate Site Iohexol (OMNIPAQUE 180) injection 2 mL 2 mL, neural-axial, NOW X1, 1 dose, On Tomeka 12/20/23 at 1545, Routine Given by Other 12/20/2023 15:20 EDT 2 mL documented in this encounter Orders Medications Ordered That Erickson ht Not Have Been Administered Count Last Ordered Date First Ordered Date Iohexol (OMNIPAQUE 180) injection 2 mL 1 documented in this encounter Care Teams Plisse Machine Operator Relationship Specialty Start Date End Date Unknown, Provider, PCP - General 05/17/23 documented as of this encounter
--- OUTSIDE RECORDS SUMMARY | 2024-05-13 16:22 | XMS_ITS | Encounter Summary ---
Author Organization [facility] Address [address] [place] [address] Care Team Providers Care Paste Thinner Name Role Phone Unknown, Provider Primary Care Provider Unava ilable Reason for Referral * (Routine/Next Available) - Receiving Office to Obtain Authorization Specialty Diagnoses / Procedures Referred By Contac t Referred To Contact Procedures MR OUTSIDE IMAGES LUMBAR SPINE Unknown, ProviderMD Referral ID Status Reason Start Date Expiration Date Visits Requested Visits Authorized [id number] Receiving Office to Obtain Authorization 12/06/2023 1 1 Reason for Visit * (Routine/Next Available) - Receiving Office to Obtain Authorization Specialty Diagnoses / Procedures Referred By Contac t Referred To Contact Procedures MR OUTSIDE IMAGES LUMBAR SPINE Unknown, ProviderMD Referral ID Status Reason Start Date Expiration Date Visits Requested Visits Authorized [id number] Receiving Office to Obtain Authorization 12/06/2023 1 1 Encounter Details Date Type Department Care Team (Latest Contact Info) Description 12/06/2023 14:06 EDT - 12/06/2023 23:59 EDT Hospital Encounter [facility] Secondary Reads [place] Discharge Disposition: Home or Self Care Social History Tobacco Use Types Packs/Day Years Used Date Smoking Tobacco: Never Assessed Sex and Gender Information Value Date Recorded Sex Assigned at Not on file Legal Sex Male 14:48 EST Gender Identity Male 05/17/2023 14:53 EST Sexual Orientation Not on file documented as of this encounter Medications at Time of Discharge acetaminophen (TYLENOL) 500 mg tablet Take 1 Tablet by mouth every 6 hours as needed for Pain. documented as of this encounter Discharge Disposition Disposition Code Departure Means Destination Home or Self Care documented in this encounter Plan of Treatment Not on file documented as of this encounter Procedures Procedure Name Priority Date/Time Associated Diagnosis Comments MR OUTSIDE IMAGES LUMBAR SPINE Routine 12/06/2023 14:06 EDT documented in this encounter Results * MR OUTSIDE IMAGES LUMBAR SPINE (12/06/2023 14:06 EDT) Narrative 12/06/2023 14:07 EDT This is a non-reportable exam. us Provider Unknown MD CHAIREZ OTHER IMAGING ORDERABLES Final Result documented in this encounter Visit Diagnoses Not on filedocumented in this encounter Care Teams Paste Thinner Relationship Specialty Start Date End Date Unknown, Provider, PCP - General 05/17/23 documented as of this encounter
--- OUTSIDE RECORDS SUMMARY | 2024-05-13 16:22 | XMS_ITS | Encounter Summary ---
Author Organization [facility] Address [address] [place] [address] Care Team Providers Care Field Crop Grower Name Role Phone Unknown, Provider Primary Care Provider Unava ilable Encounter Details Date Type Department Care Team (Latest Contact Info) Description 12/20/2023 8:37 EDT - 12/20/2023 23:59 EDT Hospital Encounter [facility] [address] [place] [address] Discharge Disposition: Home or Self Care Social [...] Procedure Name Priority Date/Time Associated Diagnosis Comments PAIN CLINIC FL LUMBAR INJECTION Routine 12/20/2023 15:19 EDT documented in this encounter Results * PAIN CLINIC FL LUMBAR INJECTION (12/20/2023 15:19 EDT) Narrative 12/20/2023 15:19 EDT This is a non-reportable exam. us Jules Long MD IMG OTHER IMAGING ORDERABLES Fin al Result documented in this encounter Visit Diagnoses Not on filedocumented in this encounter Care Teams Field Crop Grower Relationship Specialty Start Date End Date Unknown, Provider, PCP - General 05/17/23 documented as of this encounter
--- OUTSIDE RECORDS SUMMARY | 2024-05-13 16:22 | XMS_ITS | Encounter Summary ---
Author Organization [facility] Address [address] [place] [address] Care Team Providers Care Lab Systems Analyst Name Role Phone Unknown, Provider MD Primary Care Provider Unava ilable Reason for Referral * Radiology Services (Routine/Next Available) - Specialty Report Received Specialty Diagnoses / Procedures Referred By Contac t Referred To Contact Diagnoses Other spondylosis with radiculopathy, lumbar region Procedures MR LUMBAR SPINE WO CONTRAST Jules Long MD [address] [facility] [address] [place] [address] Phone: tel: fax: Referral ID Status Reason Start Date Expiration Date V isits Requested Visits Authorized [id number] Specialty Report Received 11/08/2023 1 1 Reason for Visit * Reason Comments Consult Other intervertebral disc degeneration, lumbar region * Consult (Routine) - Specialty Report Received Specialty Diagnoses / Procedures Referred By Contac t Referred To Contact Pain Medicine Diagnoses Other intervertebral disc degeneration, lumbar region Rachna Orozco, SHOES SALESPERSON [address] [place] [address] Phone: tel: fax: [facility] Interventional Pain [address] [place] [address] Phone: tel: fax: Referral ID Status Reason Start Date Expiration Date V isits Requested Visits Authorized [id number] Specialty Report Received 1 1 Encounter Details Date Type Department Care Team (Latest Contact Info) Description 11/08/2023 14:00 EDT Initial consult [facility] Interventional Pain [address] [facility] [place] [address] Jules Long MD [address] [facility] [address] [place] [address] Other spondylosis with radiculopathy, lumbar region [...] Sign Reading Time Taken Comments Blood Pressure 128/66 11/08/2023 1418 EDT Pulse 78 11/08/2023 1418 EDT Temperature 36.3 ??C (97.4 ??F) 11/08/2023 1418 EDT Respiratory Rate 16 11/08/2023 1418 EDT Oxygen Saturation 95% 11/08/2023 1418 EDT Inhaled Oxygen Concentration - - Weight - - Height - - Body Mass Index - - documented in this encounter Progress Notes * Shahab Johnson MA - 11/08/[address] Long * Jules Long MD - 11/08/2023 1400 EDT INTERVENTIONAL PAIN CONSULT Patient Name: Dmitriy Celestin Date of Service: 11/08/23 Chief Complaint: Chief Complaint Patient presents with Consult Other intervertebral disc degeneration, lumbar region Clinician Requesting Consultation: Rachna Orozco History of Present Illness: Patient with past medical history listed below who presents to the pain clinic concerning chronic low back and leg pain, bilateral. Severity: can be severe How long pain has been present: Greater than 6 months Location of Pain: Low back and S1 distribution Referred/Radicular Pain Symptoms: lumbar radicular pattern, S1 Description of Pain: Sharp and shooting Activities that worsen pain: standing, walking, bending, twisting, lifting Activities that improves pain: Inactivity Functional limitations: difficulty being as active as they would like, difficulty performing ADLs Diagnostics: lumbar x-ray reviewed independently by me multilevel degenerative changes noted Therapeutic measures that have been trialed include: PT, activity modification, multimodal medication regimen for greater than 6 weeks without significant benefit Patient currently denies any bowel and/or bladder incontinence, progressive weakness, saddle numbness, unexplained fever, trauma or unexplained weight loss. Allergies: No Known Allergies Current Medications: Current Outpatient Medications Medication acetaminophen (TYLENOL) 500 mg tablet No current facility-administered medications for this visit. Past Medical HX: History reviewed. No pertinent past medical history. Past Surgical HX: History reviewed. No pertinent surgical history. Past Social HX: Social History Socioeconomic History Marital status: Single Spouse name: Not on file Number of children: Not on file Years of education: Not on file Highest education level: Not on file Occupational History Not on file Tobacco Use Smoking status: Not on file Smokeless tobacco: Not on file Substance and Sexual Activity Alcohol use: Not on file Drug use: Not on file Sexual activity: Not on file Other Topics Concern Not on file Social History Narrative Not on file Social Determinants of Health Financial Strain: Not on file Food Insecurity: Not on file Transportation Needs: Not on file Physical Activity: Not on file Housing Stability: Not on file Family HX: Patient denies any family history of chronic pain, immunological or genetic syndromes that is contributory to the patient's current symptoms. Physical Exam: Vitals: BP 128/66 (BP Cuff Location: Right arm, BP Patient Position: Sitting, BP Cuff Sizes: Adult,long) Pulse 78 Temp 36.3 ??C (97.4 ??F) (Tympanic) Resp 16 SpO2 95% General: Patient is alert and oriented x3, no acute distress Neuro: Cranial nerves II-XII grossly intact and symmetric Cardio: ext wwp Lungs: no evidence of labored breathing Skin: clear, warm, dry and intact and no rashes, bruises or petechiae noted Musculoskeletal: Gait: patient ambulates independently , steady gait Lumbar Spine: tenderness elicited upon palpation, pain elicited upon facet loading Lower Extremity: strength 5/5 in all sultana muscle groups b/l, sensory bilaterally equal to light touch, negative straight leg raise test Assessment/Plan: Lumbar radiculopathy Patient with past medical history noted above who presents to the pain clinic for initial consultation and treatment recommendations concerning chronic neck, shoulder arm pain. Given the patient's symptomatology, physical exam findings and imaging results, we feel that the patient would most likelybenefit from a lumbar epidural steroid injection at bilateral L5-S1, transforaminal, in order to facilitate further rehabilitation. All risks, benefits, and alternatives were thoroughly explained to the patient who verbally communicated understanding of the management plan. I am also ordering a lumbar MRI. This could place change roof bolter in so far as a different approach may be taken to address the most stenotic areas. We also discussed smoking cessation and ongoing rehabilitation plan as a major part of more definitive treatment of his pain. Ethan ALONSO I spent a total of > 60 minutes on the date of this encounter meeting with the patient and reviewing documentation/coordinating care as described in the above note. documented in this encounter Plan of Treatment Scheduled Orders Name Type Priority Associated Diagnoses Orde r Schedule MR LUMBAR SPINE WO CONTRAST Imaging Routine Other spondylosis with radiculopathy, lumbar region Expected: 11/22/2023 (Approximate), Expires: 05/10/2025 documented as of this encounter Visit Diagnoses Diagnosis Other spondylosis with radiculopathy, lumbar region- Primary documented in this encounter Historical Medications * This list may reflect changes made after this encounter. acetaminophen (TYLENOL) 500 mg tablet Take 1 Tablet by mouth every 6 hours as needed for Pain. added in this encounter Care Teams Lab Systems Analyst Relationship Specialty Start Date End Date Unknown, Provider, PCP - General 05/17/23 documented as of this encounter
--- OUTSIDE RECORDS SUMMARY | 2024-05-13 16:22 | XMS_ITS | Referral Summary ---
Author Organization [facility] Address [address] [place] [address] Care Team Providers Care Private Security Guard Name Role Phone Unknown, Provider Primary Care Provider Unava ilable Allergies No known active allergies Medications acetaminophen (TYLENOL) 500 mg tablet Take 1 Tablet by mouth every 6 hours as needed for Pain. Active Social History Tobacco Use Types Packs/Day Years Used Date Smoking Tobacco: Never Assessed Sex and Gender Information Value Date Recorded Sex Assigned at Not on file Legal Sex Male 14:48 EST Gender Identity Male 05/17/2023 14:53 EST Sexual Orientation Not on file Last Filed Vital Signs Vital Sign Reading Time Taken Comments Blood Pressure 176/83 12/20/2023 1520 EDT On BP meds Pulse 59 12/20/2023 1520 EDT Temperature 36.4 ??C (97.5 ??F) 12/20/2023 1444 EDT Respiratory Rate 16 12/20/2023 1444 EDT Oxygen Saturation 98% 12/20/2023 1444 EDT Inhaled Oxygen Concentration - - Weight - - Height - - Body Mass Index - - Plan of Treatment Not on file Insurance MEDICAID [place] Care Teams Private Security Guard Relationship Specialty Start Date End Date Unknown, Provider, PCP - General 05/17/23
--- OUTSIDE RECORDS SUMMARY | 2024-05-13 16:22 | XMS_ITS | Encounter Summary ---
Author Organization [facility] Address [address] [place] [address] Care Team Providers Care Gyroscopic Instrument Mechanic Name Role Phone Unknown, Provider MD Primary Care Provider Unava ilable Reason for Referral * Radiology Services (Routine/Next Available) - New Request Specialty Diagnoses / Procedures [facility] Referred To Contact Diagnoses Foreign body in eye, unspecified laterality, sequela Procedures XR ORBITS FOR FOREIGN BODY Jules Long MD [address] [facility] [address] [place] [address] Phone: tel: fax: Referral ID Status Reason Start Date Expiration Date V isits Requested Visits Authorized [id number] New Request 11/21/2023 1 1 Encounter Details Date Type Department Care Team (Late st Contact Info) Description 11/21/2023 Orders Only [facility] Interventional Pain [address] [facility] [place] [address] Jules Long MD [address] [facility] [address] [place] [address] Foreign body in eye, unspecified laterality, sequela (Primary Dx) Social History Tobacco Use Types Packs/Day Years Used Date Smoking Tobacco: Never Assessed Sex and Gender Information Value Date Recorded Sex Assigned at Not on file Legal Sex Male 14:48 EST Gender Identity Male 05/17/2023 14:53 EST Sexual Orientation Not on file documented as of this encounter Progress Notes * Jules Long MD - 11/21/2023 1139 EDT Ordered x-ray for orbit to clear him for MRI documented in this encounter Plan of Treatment Scheduled Orders Name Type Priority Associated Diagnoses Orde r Schedule XR ORBITS FOR FOREIGN BODY Imaging Routine Foreign body in eye, unspecified laterality, sequela Expected: 11/28/2023 (Approximate), Expires: 05/23/2025 documented as of this encounter Visit Diagnoses Diagnosis Foreign body in eye, unspecified laterality, sequela- Primary documented in this encounter Care Teams Gyroscopic Instrument Mechanic Relationship Specialty Start Date End Date Unknown, Provider, PCP - General 05/17/23 documented as of this encounter
--- OUTSIDE RECORDS SUMMARY | 2024-05-13 16:22 | XMS_ITS | Encounter Summary ---
Author Organization [facility] Address [address] [place] [address] Care Team Providers Care Carpet Technician Name Role Phone Unknown, Provider MD Primary Care Provider Unava ilable Reason for Visit * Reason Onset Date Comments Appointment Related 11/21/2023 Encounter Details Date Type Department Care Team (Late st Contact Info) Description 11/21/2023 Telephone [facility] Interventional Pain [address] [facility] [place] [address] Jules Long MD [address] [place] [address] Appointment Related Social History Tobacco Use Types Packs/Day Years Used Date Smoking Tobacco: Never Assessed Sex and Gender Information Value Date Recorded Sex Assigned at Not on file Legal Sex Male 14:48 EST Gender Identity Male 05/17/2023 14:53 EST Sexual Orientation Not on file documented as of this encounter Miscellaneous Notes * Telephone Encounter - Pat Rodarte RN - 11/21/2023 1151 EDT 11/21/2023: RN left a message with [facility] radiology and advised that Dr Long has submitted arequisition for orbital x-rays. Advised to call back with any questions or concerns. Clinic number provided. * Telephone Encounter - Ramona Borden - 11/21/2023 1044 EDT Received the following voicemail 11/21/23: Hi, my name is Cary and I'm calling from [facility] Radiology Department. [place] patient Dmitriy Celestin, date of , 62. He's coming in for an MRI of his lumbar spine ordered by Jules Long on December 05. He will need an eye x-ray done prior to his MRI, so looking looking that x-ray. 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 Our fax number is [phone]. Thank you. documented in this encounter Plan of Treatment Not on file documented as of this encounter Visit Diagnoses Not on filedocumented in this encounter Care Teams Carpet Technician Relationship Specialty Start Date End Date Unknown, Provider, PCP - General 05/17/23 documented as of this encounter
--- OUTSIDE RECORDS SUMMARY | 2024-05-13 16:22 | XMS_ITS | Clinical Summary ---
Author Organization [facility] Address [address] [place] [address] Care Team Providers Care Fruit And Vegetable Inspector Name Role Phone Unknown, Provider Primary Care [...] 14:53 EST Sexual Orientation Not on file Obstetrics History Last Filed Vital Signs Vital Sign Reading Time Taken Comments Blood Pressure 176/83 12/20/2023 1520 EDT On BP meds Pulse 59 12/20/2023 1520 EDT Temperature 36.4 ??C (97.5 ??F) 12/20/2023 1444 EDT Respiratory Rate 16 12/20/2023 1444 EDT Oxygen Saturation 98% 12/20/2023 1444 EDT Inhaled Oxygen Concentration - - Weight - - Height - - Body Mass Index - - Plan of Treatment Health Maintenance Due Date Last Done Comments Hepatitis C Screen 1960 COVID-19 Vaccine (2023- season) 2023 RSV Immunization ( o r 60+ Years) (1 - 1-dose 75+ series) 2036 Insurance MEDICAID [address] [place] [address] [place] [id number] Care Teams Fruit And Vegetable Inspector Relationship Specialty Start Date End Date Unknown, Provider, PCP - General 05/17/23
--- OUTSIDE RECORDS SUMMARY | 2024-05-13 16:22 | XMS_ITS ---
Author Organization Unknown Address [address] [place] [phone] Phone Care Team Providers Care Electrical Assistant Name Role Phone HARIKA Velez Attending Cristian acosta Social History Type Status Start Date End Date Code Code Syst em Smoking History Current every day smoker 040900542 SNOMED CT Sex Male Hospital Discharge Instructions [...] 1128 10HU DY16 78 Active FDA 02/09 [id number] 8 03/20/2024 Bard Mesh Perfix Plug [id number] Extra-gyna ecological surgical mesh, composite- polymer 0110 8845 2151 3167 1725 1031 10PW K185 2X20 02 Active FDA RIGHT INGUINAL HERNIA REPAIR WITH MESH 07/07 SOW1631 X2002 02/20/2025 ProGri p [id number] AR Allergies and Adverse Reactions Allergy Substance Reaction Severity Start Date Concern Status Co de Code System PENICILLIN UNKNOWN- FROM CHILDHOOD (SNOMED-CT: null) Active Plan of Treatment No Data Found Encounters Encounter Diagnosis Start Date Code Code Sys tem Inguinal hernia 02/09/2023 [id number] SNOMED-CT Personal Care Team Section Performer Name Performer Role Active Date Inactive Da te
--- OUTSIDE RECORDS SUMMARY | 2024-05-13 16:22 | XMS_ITS | Encounter Summary ---
Author Organization [facility] Address [address] [place] [address] Care Team Providers Care Manager Social Work Name Role Phone Unavailable Primary Care Provider Unavailabl e Reason for Referral * (Routine/Next Available) - Receiving Office to Obtain Authorization Specialty Diagnoses / Procedures Referred By Contac t Referred To Contact Procedures XR OUTSIDE IMAGES LUMBAR SPINE Unknown, ProviderMD Referral ID Status Reason Start Date Expiration Date Visits Requested Visits Authorized [id number] Receiving Office to Obtain Authorization 07/10/2023 1 1 Reason for Visit * (Routine/Next Available) - Receiving Office to Obtain Authorization Specialty Diagnoses / Procedures Referred By Contac t Referred To Contact Procedures XR OUTSIDE IMAGES LUMBAR SPINE Unknown, ProviderMD Referral ID Status Reason Start Date Expiration Date Visits Requested Visits Authorized [id number] Receiving Office to Obtain Authorization 07/10/2023 1 1 Encounter Details Date Type Department Care Team (Latest Contact Info) Description 07/20/2022 - 07/20/2022 23:59 EDT Hospital Encounter [facility] Secondary [place] Discharge Disposition: Home or Self Care Social History Tobacco Use Types Packs/Day Years Used Date Smoking Tobacco: Never Assessed Sex and Gender Information Value Date Recorded Sex Assigned at Not on file Legal Sex Male 14:48 EST Gender Identity Male 05/17/2023 14:53 EST Sexual Orientation Not on file documented as of this encounter Discharge Disposition Disposition Code Departure Means Destination Home or Self Care documented in this encounter Plan of Treatment Not on file documented as of this encounter Procedures Procedure Name Priority Date/Time Associated Diagnosis Comments XR OUTSIDE IMAGES LUMBAR SPINE Routine 07/20/2022 14:48 EDT documented in this encounter Results * XR OUTSIDE IMAGES LUMBAR SPINE (07/20/2022 14:48 EDT) Narrative 07/10/2023 14:48 EDT This is a non-reportable exam. us Provider Unknown MD CHAIREZ OTHER IMAGING ORDERABLES Final Result documented in this encounter Visit Diagnoses Not on filedocumented in this encounter
== END 2024-05-13 16:24 ==
PROVIDERS: PCP Orthopaedic Surgery; Visit Provider Anesthesiology Pain Medicine
DX: M25.551 Pain in right hip (principal); M25.552 Pain in left hip
CPT/HCPCS: 73521

== ENCOUNTER 2024-05-27 10:49 | Outpatient (CLI) | payer MEDICAID, SELFPAY ==
--- NOTE | 2024-05-27 06:00 | DI.RAD_ITS ---
Exam(s) XR PAIN CLINIC FLUORO JOINT IN EXAM: XR PAIN CLINIC FLUORO JOINT IN CLINICAL HISTORY: Dx: Bilateral Hip Pain TECHNIQUE: 2D and realtime digital imaging was performed. CONTRAST MATERIAL: Refer to procedure report. COMPARISON: No exams were available for comparison FINDINGS: Fluoroscopy was provided for Dr. Nava during the performance of a left hip injection. Please ref er to the procedure report for complete details. Ka,r=2.36 mGy IMPRESSION: RADIATION DOSE DELIVERED: 0.0 0.0 0
--- NOTE | 2024-05-27 06:00 | DI.RAD_ITS ---
Exam(s) XR PAIN CLINIC FLUORO JOINT IN EXAM: XR PAIN CLINIC FLUORO JOINT IN CLINICAL HISTORY: Dx: Bilateral Hip Pain TECHNIQUE: 2D and realtime digital imaging was performed. CONTRAST MATERIAL: Refer to procedure report. COMPARISON: No exams were available for comparison FINDINGS: Fluoroscopy was provided for Dr. Nava during the performance of a right hip injection. Please re chuck to the procedure report for complete details. Ka,r=2.36 mGy IMPRESSION: RADIATION DOSE DELIVERED: 0.0 0.0 0
[2024-05-27 10:57] VITALS: BP 141/85; PULSE 73; RESP 18; TEMP 36.2; O2SAT 99
[2024-05-27 11:16] VITALS: PULSE 78; O2SAT 87
[2024-05-27 11:21] VITALS: PULSE 91; O2SAT 95
--- NOTE | 2024-05-27 11:27 | PDOC.PAIN_ITS ---
Date of service: 05/27/24 Time of Service: 11:30 Pain Managment Procedure Note Procedure Note Procedure Note: Intra-articular Hip Injection of Steroid ? Location: Bilateral Hip ? Pre-procedure Diagnosis: M25.551 Pain in right hip , M16.11Unilateral p rimary osteoarthritis, right hip M25.552 Pain in left hip , M16.12 Unilateral primary osteoarthritis, left hip ? Post-procedure Diagnosis:? The same as above ? Sedation:? ? None ? Estimated blood loss:? less than 2 cc ? Surgeon:? Dedrick Nava MD Comment: Patient has severe OA both hips right greater than left. We discussed that we proceed with injection surgical intervention would need to wait probably 3 months ? Procedure Detail:? The patient verbalized understanding of risks and signed written consent to proceed with left and right diagnostic, therapeutic intra-articular hip injection.? The patient was taken to the block suite.? The patient was placed in the lateral position.? Pillows were used for proper patient positioning and comfort.? Time out was performed in the procedure room with nursing staff confirming the patient's identity, procedure to be performed, allergies, and any blood thinning or anti-platelet medications.? The skin overlying the right hip was prepped with ChloraPrep and draped in a sterile fashion. Sterile gloves were used, a face mask was worn, and new single dose vials of all medications were used with the top being swabbed with alcohol and given time to dry prior to withdrawal of medication. A/P fluoroscopic view was utilized to identify the target site. With fluoroscopic assistance, using a 22g Quincke needle the joint space was entered with ease. Injection of 1 cc of Omnipaque 240 contrast revealed appropriate spread within the joint capsule in the AP view.? Aspiration was performed and negative for blood or fluid.? This was followed by 40 mg of methylprednisolone mixed with 4cc?s of 2% lidocaine.? The needle was then gently removed.? The procedure was then repeated on the opposite side. The patient was taken to recovery in stable condition without complication. Permanent images saved and recorded. Plan:? Follow up prn COMMENT: Referral to Dr. Mcadams was made.
[2024-05-27] MEDS: Omnipaque 240 MG/ML 50 ML BTL IJ (11:29)
[2024-05-27] MEDS: Nerve Block Tray 1 EACH MC (11:29)
[2024-05-27] MEDS: methylPREDNISolone ACETATE 40 MG/ML VIAL IJ (11:30)
[2024-05-27] MEDS: Bupivacaine 0.5% Pres-Free 10 ML VIAL IJ (11:30)
== END 2024-05-27 10:50 | disposition home or self-care (01) ==
LOC: PC 10:49
PROVIDERS: PCP Orthopaedic Surgery; Visit Provider Anesthesiology Pain Medicine
DX: M16.11 Unilateral primary osteoarthritis, right hip (principal); M16.12 Unilateral primary osteoarthritis, left hip
CPT/HCPCS: 123; 20610; 77002; 00123; J0665; J1010; Q9967

== ENCOUNTER 2024-07-09 09:55 | Outpatient (CLI) | payer MEDICAID, SELFPAY ==
[2024-07-09 10:09] VITALS: BP 149/89; PULSE 71; RESP 18; TEMP 36.2; O2SAT 99
--- NOTE | 2024-07-09 10:35 | PDOC.PAIN ---
Date of service: 07/09/24 Time of Service: 10:54 Pain Managment Procedure Note Procedure Note Procedure Note: Caudal Epidural Steroid Injection ? Location: Caudal Epidural Space ?Pre-procedure Diagnosis: M54.17-Radiculopathy, lumbosacral region ? Post-procedure Diagnosis:? The same as above ? Sedation:? none? Estimated blood loss:? less than 2 cc ?Surgeon:? Dedrick Nava MD COMMENT: He had a foreign body removed from the bottom of his foot and that is painful(before his 1st visit). I examined it and there is no sign of infection. Appears to be a granuloma now. He will follow-up with provider that removed that and sutured him. ? Procedure Detail:?? The procedure and potential risks were explained to the patient and informed written consent was obtained. The patient was escorted to the procedure room and placed in the prone position. Pillows were utilized for proper positioning and comfort. Time out was performed in the procedure room with nursing staff confirming the patient's identity, procedure to be performed, allergies, and any blood thinning or anti-platelet medications. The patient's lower back/coccyx area was prepped with ChloraPrep x2 and draped in a sterile fashion. Sterile technique was maintained throughout the procedure.? Sterile gloves were used, a face mask was worn, and new single dose vials of all medications were used with the top being swabbed with alcohol and given time to dry prior to withdrawal of medication. Subcutaneous 1% lidocaine was instilled into the superficial soft tissue of the patient's lower back/coccyx area for local anesthesia using a 25-gauge 1.5 inch needle. Under fluoroscopic guidance a 17G Tuohy needle was placed within the caudal canal. An 19 G Arrow catheter was directed cephalad to L4-5. 1cc of Omnipaque 240 contrast was injected showing appropriate spread in the caudal epidural space.? Placement was confirmed in AP and lateral projection. 80 mg of Depo-Medrol and 3 ml saline was injected without complication. The needle and catheter was removed intact. The patient tolerated the procedure well and was transported to the recovery area for observation and discharge instructions. Permanent images saved and recorded. Plan:? Follow prn. PAIN: PRE-PROCEDURE 10 POST-PROCEDURE 010 COMMENT: Could repeat as needed as long as he gets good long-term relief. Patient's more significant problem is his hips that are both very arthritic and [id number]. Coding Conscious Sedation used for procedure: No CPT Codes: Inj Spine L/S w/Imaging - 25959 ([id number] ~G) Additional Codes: Date of Service (87213) Date of service: 07/09/24
[2024-07-09 10:36] VITALS: PULSE 66; O2SAT 97
[2024-07-09 10:40] VITALS: PULSE 72; O2SAT 99
--- NOTE | 2024-07-09 10:40 | DI.RAD_ITS ---
Exam(s) XR PAIN CLINIC LUMBAR SP 2V EXAM: XR PAIN CLINIC LUMBAR SP 2V CLINICAL HISTORY: Dx: Lumbar Radiculopathy TECHNIQUE: 2D and realtime digital imaging was performed. CONTRAST MATERIAL: Refer to procedure report. COMPARISON: No exams were available for comparison FINDINGS: Fluoroscopy was provided for Dr. Nava during the performance of a lumbar epidural steroid injecti on. Please refer to the procedure report for complete details. Ka,r=2.61 mGy IMPRESSION: RADIATION DOSE DELIVERED: 0.0 0.0 0
[2024-07-09] MEDS: Epidural Tray 1 EACH MC (10:49)
[2024-07-09] MEDS: methylPREDNISolone ACETATE 40 MG/ML VIAL IJ (10:49)
[2024-07-09] MEDS: Omnipaque 240 MG/ML 50 ML BTL IJ (10:49)
== END 2024-07-09 09:56 | disposition home or self-care (01) ==
LOC: PC 09:56
PROVIDERS: Visit Provider Anesthesiology Pain Medicine
DX: M54.17 Radiculopathy, lumbosacral region (principal)
CPT/HCPCS: 62323; 72100; J1010; Q9967

== ENCOUNTER 2024-08-28 14:33 | Outpatient (CLI) | payer MEDICAID, SELFPAY ==
--- NOTE | 2024-08-28 13:30 | DI.RAD_ITS ---
Exam(s) XR PELVIS AP EXAM: XR PELVIS AP CLINICAL HISTORY: BILATERAL HIP PAIN. TECHNIQUE: 2D digital imaging was performed. Single AP view. COMPARISON: CR XR HIP PELVIS ADULT BL from 05/13/2024 FINDINGS: BONES: No acute fracture is present. No bony destructive lesion is seen. JOINTS: Severe narrowing of both hip joint spaces is again noted. Findings are most severe on the ri ght, the where there is obliteration of the joint space, significant flattening of the femoral head a s well as remodeling of the acetabulum. SOFT TISSUE: Vascular calcifications. IMPRESSION: End-stage degenerative changes of the right hip. Severe degenerative changes of the left hip. DATA REPOSITORY: RADIATION DOSE DELIVERED:
== END 2024-08-28 14:34 | disposition home or self-care (01) ==
LOC: DIORS 14:35
PROVIDERS: Visit Provider Student in an Organized Health Care Education/Training Program
DX: M16.0 Bilateral primary osteoarthritis of hip (principal); M25.551 Pain in right hip; M25.552 Pain in left hip
CPT/HCPCS: 72170

== ENCOUNTER 2024-09-23 07:06 | Observation (INO) | payer MEDICAID, SELFPAY ==
[2024-09-23] VITALS (27 sets, daily range): BP systolic 89–149; BP diastolic 61–88; PULSE 44–239; RESP 9–25; TEMP 36.1–37.1; O2SAT 93–100; BMI 17.7
--- NOTE | 2024-09-23 06:37 | ANES.PREOP_ITS ---
General Info Date of Service Date Performed: 09/23/24 Height: 5 ft 7.5 in Weight: 52.2 kg Body Mass Index (BMI): 17.7 Surgical Procedure: Operation Date: 09/23/24 08:00 Proposed Procedure Side Surgeon p Hip Total Hip Anterior Bilateral Bilateral Zbigniew Mcadams MD Meds Allergies and Home Medications Allergies Allergy/AdvReac Type Severity Reaction Status Date / Time Penicillins Allergy Mild Skin Rash Verified 09/23/24 06:28 Home Medication ?Medication ?Instructions ?Recorded olmesartan 40 mg-amlodipine 5 1 tab PO DAILY 01/11/24 mg-hydrochlorothiazide 12.5 mg tablet acetaminophen 500 mg tablet 1,000 mg (2 x 500 mg) PO Q8H PRN 09/23/24 pain #90 tabs aspirin 81 mg tablet,delayed 81 mg PO BID 30 days #60 tabs 09/23/24 release celecoxib 200 mg capsule (Celebrex) 200 mg PO BID PRN #60 caps 09/23/24 dexamethasone 4 mg tablet 4 mg PO DAILY #2 tabs 09/23/24 docusate sodium 100 mg capsule 100 mg PO BID #28 caps 09/23/24 (Colace) oxycodone 5 mg tablet 5 mg PO Q6H PRN #12 tabs 09/23/24 pantoprazole 40 mg tablet,delayed 40 mg PO DAILY #14 tabs 09/23/24 release Current Visit Medications: Current Medications Generic Name Dose Route Start Last Admin Trade Name Freq PRN Reason Stop Dose Admin Acetaminophen 1,000 mg 09/23/24 06:00 Acetaminophen 500 Mg Tab PO 09/23/24 23:59 PREOP ROCCO Celecoxib 400 mg 09/23/24 06:00 Celecoxib 200 Mg Cap PO 09/23/24 23:59 PREOP ROCCO Ringer's Solution 1,000 mls @ 80 mls/hr 09/23/24 06:00 IV 09/23/24 23:59 INFUSION ROCCO Cefazolin Sodium/Dextrose 2 gm in 50 mls @ 100 mls/hr 09/23/24 06:00 Ancef Duplex IVPB 09/23/24 23:59 PREOP ROCCO Tranexamic Acid/Sodium Chloride 1,000 mg in 100 mls @ 600 mls/hr 09/23/24 06:00 IVPB 09/23/24 23:59 PREOP ROCCO Tranexamic Acid/Sodium Chloride 1,000 mg in 100 mls @ 600 mls/hr 09/23/24 06:00 IVPB 09/23/24 23:59 DIRECTED [facility] IV Miscellaneous Supplies 1 each 09/23/24 06:00 Iv Access IV 09/23/24 23:59 DIRECTED ROCCO Sodium Chloride 0 ml 09/23/24 06:00 Normal Saline Flush 10 Ml Syr IV 09/23/24 23:59 PRN PRN Sodium Chloride 0 ml 09/23/24 06:00 Normal Saline 10 Ml Vial IJ 09/23/24 23:59 DIRECTED PRN Sterile Water 0 ml 09/23/24 06:00 Water,Injection,Sterile 10 Ml Vial IJ 09/23/24 23:59 DIRECTED PRN PFSH Active Problems Active Problems: Problem Status Onset Code Osteoarthritis, hip, bilateral Acute M16.0 Hip pain, bilateral Acute M25.551, M25.552 Lumbar radiculitis Acute M54.16 Mechanical low back pain Acute M54.59 Lumbar spondylosis Acute M47.816 Vertebrogenic low back pain Acute M54.51 Medical History Medical History FH: carotid endarterectomy Tobacco user PVD (peripheral vascular disease) Primary osteoarthritis Migraine headache Lumbago with sciatica, right side Lumbago with sciatica, left side Leg pain Inguinal hernia, left Hypertensive disorder Chronic pain GERD (gastroesophageal reflux disease) Dyslipidemia DDD (degenerative disc disease), lumbar CVA (cerebral vascular accident) 2014 Blood clotting disorder pt. states he is unsure Back pain Surgical History Surgical History H/O hernia repair Tobacco Smoking/Tobacco Use Status: Current every day Tobacco Type: cigarettes Smoking packs per day: 2 Smoking cigarettes per day: 40.0 Passive smoking exposure: Yes Counseling given: patient declined Alcohol Alcohol Intake: current Alcohol intake frequency: a few times a week Alcohol type: beer and hard liquor Substance Use Substance use: Daily Substance use type: marijuana (Last use 09/22/24) Vital Signs and Lab Results Vital Signs Most Recent Vital Signs in EMR: Most Recent Vital Signs Temp Pulse Resp BP Pulse Ox 36.6 C 67 16 149/82 H 97 09/23/24 06:33 09/23/24 06:33 09/23/24 06:33 09/23/24 06:33 09/23/24 06:33 Lab Results 09/23/24 07:12 09/23/24 07:12 Blood Type / Crossmatch: 2 Antibody Screen Pending 09/23/24 Complete Blood Count: 2 White Blood Count 7.30 10^3/uL (4.4-10.8) 09/23/24 07:12 Red Blood Count 4.16 10^6/uL (4.36-5.78) L 09/23/24 07:12 Hemoglobin 13.7 g/dL (13.5-17.5) 09/23/24 07:12 Hematocrit 41.9 % (40.0-50.0) 09/23/24 07:12 Platelet Count 248 10^3/uL (130-400) 09/23/24 07:12 Complete Metabolic Panel: 2 Est GFR (CKD-EPI 2020) Pending 09/23/24 07:12 Liver Function Panel: 2 No Data to Display Coagulation Panel: 2 No Data to Display Cardiac Panel: 2 No Data to Display Arterial Blood Gas: 2 No Data to Display Venous Blood Gas: 2 No Data to Display Pancreas Panel: 2 No Data to Display Thyroid Panel: 2 No Data to Display Infectious Disease: 2 No Data to Display Blood Cultures: 2 No Data to Display Toxicology Panel: 2 No Data to Display Anesthesia Assessment and Plan Anesthesia History Personal History: No History of Anesthesia Complications Family History: Family History Unknown Exercise Tolerance Exercise Tolerance: Metabolic Equivalents>4 Pertinent Negatives Pertinent Negatives: No Symptoms of GERD, No Major Cardiovascular Symptoms or Complaints and No Major Pulmonary Symptoms or Complaints Cardiac & Pulmonary Exam Cardiac Exam: Normal S1/S2 Heart Sounds Pulmonary Exam: No cough or Cold and Other (Diminished throughout) Implantable Cardiac Device Does patient have a Pacemaker or an ICD?: No Airway Exam Known Difficult Airway: No Mallampati Class: 1 Mouth Opening: Normal (> 3cm) Thyromental Distance: Greater than 3 cm Neck Range of Motion: Full ROM Neck Circumference: Normal Teeth Condition: Generalized Poor Dentition ASA Classification ASA Score: ASA 3 Emergency Case?: No NPO Status NPO Status: NPO Clears >2 hours, Solids >8 hours Anesthesia Plan Resuscitation Status: Full Code Anesthesia Technique: Spinal Anesthesia Airway Planned: Natural Airway Monitors Used: Standard Monitors Preoperative Comments:: 64 YO M presenting for bilateral total hip replacement. PMHx notable for carotid artery disease, CVA (2013), lumbar spondylosis, and current smoking (50 pack years). Residual from CVA includes LUE weakness and impaired coordination. Patient also endorses generalized LLE intermittent paresthesia and weakness. Patient denies knowledge of blood clotting disorder.
[2024-09-23] MEDS: Acetaminophen 500 MG TAB 1000 MG PO ×4 (06:38→20:24)
[2024-09-23] MEDS: Celecoxib 200 MG CAP 400 MG PO (06:38)
[2024-09-23] MEDS: Lactated Ringers 1,000 ML 80 ML IV (07:00)
--- NOTE | 2024-09-23 07:08 | W.PM.DSUDISC ---
Date of service: 09/23/24 Discharge Plan Disposition Patient Disposition: Home Condition: Good Discharge Details Reason For Visit: Bilateral hip DJD Attending Provider: Zbigniew Mcadams Primary Care Provider: Zach Olivas Home Meds and New Rx's Prescriptions: New celecoxib [Celebrex] 200 mg capsule 200 mg PO BID PRNQty: 60 0RF Rx Instructions: Take one tablet twice daily for pain and inflammation aspirin 81 mg tablet,delayed release (DR/EC) 81 mg PO BID 30 Days Qty: 60 0RF acetaminophen 500 mg tablet 1,000 mg PO Q8H PRN Qty: 90 0RF Rx Instructions: Take two tablets up to every 8 hours as needed for pain pantoprazole 40 mg tablet,delayed release (DR/EC) 40 mg PO DAILY Qty: 14 0RF dexamethasone 4 mg tablet 4 mg PO DAILY Qty: 2 0RF Rx Instructions: Take one tablet once daily for two days docusate sodium [Colace] 100 mg capsule 100 mg PO BID Qty: 28 0RF oxycodone 5 mg tablet 5 mg PO Q6H PRNQty: 12 0RF Rx Instructions: Take one tablet up to every 6 hours as needed for severe postoperative pain Continued dxdbomnpdf-lzcjwcdzt-[id number] 40-5-12.5 mg tablet 1 tab PO DAILY Discontinued acetaminophen [Tylenol Extra Strength] 500 mg tablet 500 mg PO Q6H PRN Discharge Instructions Additional Instructions: Total Hip Discharge Instructions Activity: The most important activity is to walk. You should try to take short walks a few times a day. You have no restrictions on movement or positioning, but do not try to force what you do. You will find some stiffness and weakness with hip flexion (lifting your knee). Do not try to strengthen this too early, continue to practice walking and stairs and this will come. - Outpatient physical therapy can be helpful to help return you to a normal gait and improve your flexibility and strength. This can start around 2 weeks. For some patients, it?s not necessary. Usually this is determined at the time of discharge or at the first post-operative visit. - You should wear the HOLLY hose on both legs for 2 weeks. Dressing: Keep the surgical dressing in place for at least one week. After the first week it may be removed and replace with light gauze and tape or nothing. It may get wet after 3 days but avoid soaking the dressing. If it gets wet, just lightly pat dry. It is important to always keep some gauze between skin folds, especially when you are sitting. Spend some time with the wound exposed when you are lying flat as the incision does wrinkle onto itself. Medications: - You should take Tylenol and an anti-inflammatory Celebrex as your primary pain control medications. If the Celebrex is too expensive or not covered, please call the office for another alternative (Advil/Ibuprofen or Naproxen/Aleve). - You have been prescribed a stronger pain medication Oxycodone for breakthrough pain, take as needed as prescribed. - You have also been prescribed a stomach acid reduction agent Pantoprozole to help reduce stomach acid and reflux. - You have also been prescribed Decadron to help with post-operative nausea and pain. You will take this for two days starting tomorrow. - You will be taking Aspirin 81mg twice a day for DVT prevention unless instructed otherwise. - If you have constipation you should take Colace (which has been prescribed) or Miralax (which is available [id number]). It takes most people 3-4 days to have a bowel movement. Follow-up: 2 weeks If you have any acute concerns or questions, please do not hesitate to contact the office at [phone]. You may contact Dr. Mcadams with any questions after hours through the hospital at [phone] or on his cell phone at [phone]. Equipment/Supplies: Walker Activity:: Elevate Remove Dressings/Wound Care:: Do Not Remove Shower/Bathe:: Cover Diet:: As Tolerated Discharge Orders Discharge Orders: Discharge Order (Routine); Ordered 09/23/24 Ordered By: Julia Bender
[2024-09-23 07:23] LABS: HCT 41.9 % (40.0-50.0); HGB 13.7 g/dL (13.5-17.5); MCH 32.9 pg (27.0-33.0); MCHC 32.7 % (32.0-36.0); MCV 101 fL (80-95); MPV 8.8 fL (8.0-11.0); Platelet Count 248 10^3/uL (130-400); RBC 4.16 10^6/uL (4.36-5.78); RDW-SD 45.1 fL
[2024-09-23 07:37] LABS: Anion Gap 6.8 mmol/L (3-11); BUN 33 mg/dL (7-18); CO2 29.2 mmol/L (21.0-32.0); CREATININE 0.9 mg/dL (0.70-1.30); Calcium 9.2 mg/dL (8.5-10.1); Chloride 102 mmol/L (98-107); Estimated GFR 95.97 (mL/min/1.73m2); Glucose 94 mg/dL (74-106); Potassium 4.6 mmol/L (3.5-5.1); Sodium 138 mmol/L (136-145)
[2024-09-23] MEDS: ceFAZolin 2 GM/50 ML BAG IVPB (08:00)
[2024-09-23] MEDS: TRANEXAMIC ACID/SOD. CHL. 1,000 MG/100 ML BAG 600 MG IVPB ×2 (08:07→09:15)
--- NOTE | 2024-09-23 09:00 | DI.RAD_ITS ---
Exam(s) XR HIP RT IN OR EXAM: XR HIP RT IN OR CLINICAL HISTORY: Osteoarthritis, hip, bilateral. TECHNIQUE: 2D digital imaging was performed. COMPARISON: No exams were available for comparison FINDINGS: Fluoroscopy provided during hip arthroplasty. See procedure report for details. Total fluoroscopy time 29.9 seconds IMPRESSION: Radiation exposure index/cumulative dose:trav Breaux=1.9562mGy DATA REPOSITORY: RADIATION DOSE DELIVERED:
--- NOTE | 2024-09-23 10:09 | DI.RAD_ITS ---
Exam(s) XR HIP LT IN OR EXAM: XR HIP LT IN OR CLINICAL HISTORY: Osteoarthritis, hip, bilateral. TECHNIQUE: 2D digital imaging was performed. COMPARISON: No exams were available for comparison FINDINGS: Fluoroscopy provided during hip arthroplasty. See procedure report for details. Total fluoroscopy time 20.3 seconds IMPRESSION: Radiation exposure index/cumulative dose:trav Breaux=1.1632mGy DATA REPOSITORY: RADIATION DOSE DELIVERED:
--- NOTE | 2024-09-23 10:35 | W.PM.OP ---
Operative Note Operative Note PRE-OP DIAGNOSIS: Bilateral Hip Osteoarthritis POST-OP DIAGNOSIS: same PROCEDURE: Bilateral Anterior Total Hip Arthroplasty with Intraoperative Navigation SURGEON: Zbigniew Mcadams GAUGE MAKER: Julia Bender ANESTHESIA TYPE: Spinal Refer to Anesthesia Record ESTIMATED BLOOD LOSS: 400 PATHOLOGY: none sent COMPLICATIONS: None Patient was transported to: PACU Patient's condition: stable Implants: RIGHT: 1. Depuy Emmet Acetabular Component, 54mm 2. Depuy Acetabular Liner, [id number] 3. Depuy Actis Standard Femoral Stem, Size 6 4. Depuy Altrx Ceramic Femoral Head, Size 36+8.5mm LEFT: 1. Depuy Emmet Acetabular Component, 56mm 2. Depuy Acetabular Liner, [id number] 3. Depuy Actis High Offset Femoral Stem, Size 5 4. Depuy Altrx Ceramic Femoral Head, Size 36+1.5mm Indications: I have seen Nik in clinic for symptoms of severe, bilateral hip arthritis, confirmed with radiographic findings. He has exhausted nonoperative methods and was having significant limitations in daily function and desired better function and less pain. I discussed the technical details of a hip replacement. I explained the risks of the procedure to include, but not limited to, bleeding, infection, pain, stiffness, fracture, damage to nerves and vessels, damage to muscles and tendons, loosening, instability, leg length inequality, need for repeat procedure, blood clot and cardiopulmonary demise. Despite these risks, Nik elected to proceed. Findings: There was significant signs of arthritis throughout both hips with deformity of the femoral heads and large osteophytes. The right hip also had significant synovitis. Procedure Description: Nik was greeted in the preoperative holding area where the correct side was identified and marked. The consent was reviewed with the patient and signed. The history and physical was updated. All questions were answered. He was taken back to the operating room. A spinal anesthestic was then administered. The patient was placed into the supine position on the HANA table. Both feet were wrapped with Webrill cotton wrap along with Coban. RIGHT Side The feet were placed in specialized boots for the HANA table, well seated within the boot and secured. SCDs were applied. The patient was then slid down onto a peroneal post. A preoperative AP hip was obtained to serve as a reference for determining leg lengths. Prophylactic antibiotics in the form of Cefazolin were administered. 1g of Tranxemic Acid was given intravenously within 30 minutes of incision. The right leg was then prepped with Chloraprep and draped in a standard fashion. A second prep with Chloraprep was performed prior to placement of a shower-curtain type drape with Iodine impregnated skin protection. A timeout to confirm correct identity, side and site, procedure, allergies, anesthesia, and medical concerns was performed. An obliquely oriented incision was made starting lateral to the ASIS and running distal over the Tensor Fascia Alysa (TFL) muscle belly toward the fibular head, approximately 10cm. The skin and soft tissue was dissected sharply, through Gladis?s fascia, and to the fascia of the TFL. With the fascia and superior border of the IT band identified, the fascia was incised with a new knife just above any perforators from the IT band. The TFL muscle belly was bluntly dissected away from the fascia and moved laterally. The fat between TFL and rectus was identified to ensure the dissection was not within the TFL. Blunt dissection created space between abductors and the capsule and retractor was placed over the lateral femoral neck. The fibers of the rectus femoris tendon were identified and these were freed from the anterior capsule. A second cobra retractor was placed around the medial femoral neck. The TFL was further retracted laterally to show the deep fascia. Careful dissection through this layer identified three main crossing vessels of the lateral femoral circumflex. These were cauterized in multiple locations and then cut without any noticeable bleeding. The TFL was further released bluntly from the deep fascia to expose anterior hip capsule and fat The Beto orthopaedic retractor was then placed beneath the TFL and against sartorius and medial soft tissues to protect and retract the soft tissues. A T-capsulotomy was then performed starting at the superior lateral acetabulum and moving distally to the intertrochanteric ridge. These capsular flaps were tagged with a No. 1 Ethibond and elevated from within. The capsular flaps were released to the shoulder of the lateral neck and to the lesser trochanter to give excellent visualization of the proximal femur. There is significant amount of synovitis seen. This was also resected. A neck osteotomy was performed using an oscillating saw based on preoperative templates. This cut started in the shoulder and of the lateral neck and exited medially. The saw was at all times directed medially to avoid injury to the greater trochanter. Gentle traction was applied to the leg and the osteotomy opened. The femoral head was removed with a corkscrew, making sure to protect the TFL on its exit. This was measured on the back table to determing the starting reamer size. Portions of the rectus obscuring visualization were minimally elevated off the superior acetabulum. An anterior retractor was placed over the anterior wall between capsule and labrum and attached to the Gripper retraction system. A posterior retractor was placed similarly. This provided excellent visualization. The contents of the cotyloid fossa were removed with electrocautery and the labrum was removed with a knife. There was a notable floor osteophyte. There was significant chondromalacia of the superior acetabulum. Acetabular reaming began with a 51mm reamer. This first reaming was directed anterior to posterior and medial to get down to the true floor. This was inspected and reamed until the true floor was reached. The anterior retractor was then released and entry and exit was provided by traction on the capsular flaps. I then reamed sequentially up to a 54mm reamer where good fit was obtained. The larger reamers were oriented based on anatomical reference of the anterior and lateral ruiz to ensure proper abduction and anteversion. Positioning and size was confirmed with the fluoroscopy. A 54mm Depuy Emmet acetabular component was selected. The deep tissues were irrigated. The acetabular component was then impacted in a position of about 40-45 degrees of abduction and 15-20 degrees of anteversion, using the patient?s anatomy as the ultimate landmark. Fluoroscopy was used to confirm this. There was excellent chief compliance officer of the acetabular component and the inserting handle was removed. A curved osteotome was used to remove some of the osteophytes from the posterior and anterior aspect of the acetabulum. The acetabular liner, Depuy [id number] polyethylene liner, was inserted and lined up with the tines of the acetabular component. There was no soft tissue interposition. The liner was then impacted into position and confirmed to be well-seated. A portion of the kimberlyn-articular cocktail was then injected around the acetabulum into the capsule and periosteum. This cocktail consisted of 123mg of Ropivacaine, 0.25mg of Epinephrine, 0.04mg of Clonidine, and 15mg of Ketorolac, diluted to 50cc. Traction was released from the femur. The leg was rotated to 120 degrees. Any remaining medial capsule was released until the lesser trochanter was easily palpable. A Baez retractor was placed medially. The lateral capsule was further released into the shoulder to allow access to the greater trochanter. A Baez retractor was placed over the greater trochanter which allowed the trochanter to flip in front of the capsule for excellent exposure. The leg was brought down into maximal extension and 20 degrees of adduction while ensuring there was no impingement on the acetabulum. Any remnant capsule within the trochanter was released. Piriformis and obturator externis were identified and protected. There was excellent access to the proximal femur. The lateral neck remnant was removed with a rongeur. A blunt canal probe was used to identify the canal and trajectory for later broaching. A box osteotome initiated the broach course. A small curved rasp and a curved curette were used to work laterally. Broaching then began with a size 8 Corail broach. This was inserted manually around the trochanter and into the canal before mallet blows. The broach was seated to the neck cut level based on the neck cut and the preoperative template. Sequential broaching was continued with the Efficiency Exchangese pneumatic broaching device until a tight fit was obtained with good rotational control of the femur. A trial standard neck was inserted along with a +5 trial head. The leg was brought out of extension and adduction and then reduced with traction and internal rotation. The leg was stable anteriorly in a position of 30 degrees of extension and 90 degrees of external rotation. Fluoroscopy was used to ensure there was no fracture and the stem was seated well. Leg lengths were checked with an AP pelvis and pelvic reference points. eMoov navigation system was used to confirm appropriate positioning and leg length and offset. This was increased to +8.5mm to correct leg length and offset. Once content with the desired offset and leg lengths, the leg was brought back into extension, external rotation and adduction. The periosteum and surrounding tissue was injected with remaining portion of the kimberlyn-articular cocktail. The proximal femur was irrigated as well as the deep tissues. The Depuy Actis Standard stem, size 6, was then manually inserted into the proximal femur making sure to control rotation. It was then malleted into position with light blows, giving breaks to allow bone expansion and decrease risk of fracture. The selected Depuy Altrx Ceramic Head, size 36+8.5mm, was then placed onto the clean and dry trunnion and secured with impaction onto the tapered fit. The leg was brought back out of extension and adduction and reduced with traction and internal rotation. Stability was confirmed with no shuck at 90 degrees of external rotation and 30 degrees of extension. No impingement through range of motion arc. Final x-ray images were obtained with fluoroscopy to confirm adequate positioning and no intraoperative fracture. The deep tissues were thoroughly irrigated with Irrisept chlorhexadine solution. The second dose of TXA 1g was administered intravenously.The capsule was then reapproximated with the previously placed Ethibond sutures. The TFL fascia was finally closed with a No. 2 Stratafix, barbed suture. Deep tissues were then reapproximated with 0 Vicryl and a running 2-0 Vicryl. The skin was closed with a running 4-0 Monocryl in a subcuticular fashion. This was reinforced with skin glue. A Mepilex silver dressing was applied. LEFT Side Keeping the back table sterile, the drapes were removed, light handles changed, and fluoroscopy switched rooms sides. Once again, a AP hip was obtained to serve as a reference for determining leg lengths. The left leg was then prepped with Chloraprep and draped in a standard fashion. A second prep with Chloraprep was performed prior to placement of a shower-curtain type drape with Iodine impregnated skin protection. A timeout was once again performed to ensure that there were no issues to proceed. An obliquely oriented incision was made starting lateral to the ASIS and running distal over the Tensor Fascia Alysa (TFL) muscle belly toward the fibular head, approximately 10cm. The skin and soft tissue was dissected sharply, through Gladis?s fascia, and to the fascia of the TFL. With the fascia and superior border of the IT band identified, the fascia was incised with a new knife just above any perforators from the IT band. The TFL muscle belly was bluntly dissected away from the fascia and moved laterally. The fat between TFL and rectus was identified to ensure the dissection was not within the TFL. Blunt dissection created space between abductors and the capsule and retractor was placed over the lateral femoral neck. The fibers of the rectus femoris tendon were identified and these were freed from the anterior capsule. A second cobra retractor was placed around the medial femoral neck. The TFL was further retracted laterally to show the deep fascia. Careful dissection through this layer identified three main crossing vessels of the lateral femoral circumflex. These were cauterized in multiple locations and then cut without any noticeable bleeding. The TFL was further released bluntly from the deep fascia to expose anterior hip capsule and fat The Beto orthopaedic retractor was then placed beneath the TFL and against sartorius and medial soft tissues to protect and retract the soft tissues. A T-capsulotomy was then performed starting at the superior lateral acetabulum and moving distally to the intertrochanteric ridge. These capsular flaps were tagged with a No. 1 Ethibond and elevated from within. The capsular flaps were released to the shoulder of the lateral neck and to the lesser trochanter to give excellent visualization of the proximal femur. A neck osteotomy was performed using an oscillating saw based on preoperative templates. This cut started in the shoulder and of the lateral neck and exited medially. The saw was at all times directed medially to avoid injury to the greater trochanter. Gentle traction was applied to the leg and the osteotomy opened. The femoral head was removed with a corkscrew, making sure to protect the TFL on its exit. This was measured on the back table to determing the starting reamer size. Portions of the rectus obscuring visualization were minimally elevated off the superior acetabulum. An anterior retractor was placed over the anterior wall between capsule and labrum and attached to the Gripper retraction system. A posterior retractor was placed similarly. This provided excellent visualization. The contents of the cotyloid fossa were removed with electrocautery and the labrum was removed with a knife. There was a notable floor osteophyte. There was significant chondromalacia of the superior acetabulum. Acetabular reaming began with a 51mm reamer. This first reaming was directed anterior to posterior and medial to get down to the true floor. This was inspected and reamed until the true floor was reached. The anterior retractor was then released and entry and exit was provided by traction on the capsular flaps. I then reamed sequentially up to a 56mm reamer where good fit was obtained. The larger reamers were oriented based on anatomical reference of the anterior and lateral ruiz to ensure proper abduction and anteversion. Positioning and size was confirmed with the fluoroscopy. A 56mm Depuy Emmet acetabular component was selected. The acetabulum was reamed around the periphery with the selected acetabular size to prevent a rim fit. The deep tissues were irrigated. The acetabular component was then impacted in a position of about 40-45 degrees of abduction and 15-20 degrees of anteversion, using the patient?s anatomy as the ultimate landmark. Fluoroscopy was used to confirm this. There was excellent chief compliance officer of the acetabular component and the inserting handle was removed. The acetabular liner, Depuy [id number] polyethylene liner, was inserted and lined up with the tines of the acetabular component. There was no soft tissue interposition. The liner was then impacted into position and confirmed to be well-seated. A portion of the kimberlyn-articular cocktail was then injected around the acetabulum into the capsule and periosteum. This cocktail consisted of 123mg of Ropivacaine, 0.25mg of Epinephrine, 0.04mg of Clonidine, and 15mg of Ketorolac, diluted to 50cc. Traction was released from the femur. The leg was rotated to 120 degrees. Any remaining medial capsule was released until the lesser trochanter was easily palpable. A Baez retractor was placed medially. The lateral capsule was further released into the shoulder to allow access to the greater trochanter. A Baez retractor was placed over the greater trochanter which allowed the trochanter to flip in front of the capsule for excellent exposure. The leg was brought down into maximal extension and 20 degrees of adduction while ensuring there was no impingement on the acetabulum. Any remnant capsule within the trochanter was released. Piriformis and obturator externis were identified and protected. There was excellent access to the proximal femur. The lateral neck remnant was removed with a rongeur. A blunt canal probe was used to identify the canal and trajectory for later broaching. A box osteotome initiated the broach course. A small curved rasp and a curved curette were used to work laterally. Broaching then began with a size 8 Corail broach. This was inserted manually around the trochanter and into the canal before mallet blows. The broach was seated to a few millimeters below the cut level based on the neck cut and the preoperative template. Sequential broaching was continued with the Efficiency Exchangese pneumatic broaching device until a tight fit was obtained with good rotational control of the femur. A trial high offset neck was inserted along with a +1.5 trial head. The leg was brought out of extension and adduction and then reduced with traction and internal rotation. The leg was stable anteriorly in a position of 30 degrees of extension and 90 degrees of external rotation. Fluoroscopy was used to ensure there was no fracture and the stem was seated well. Leg lengths were checked with an AP pelvis and pelvic reference points. eMoov navigation system was used to confirm appropriate positioning and leg length and offset. Once content with the desired offset and leg lengths, the leg was brought back into extension, external rotation and adduction. The periosteum and surrounding tissue was injected with remaining portion of the kimberlyn-articular cocktail. The proximal femur was irrigated as well as the deep tissues. The Depuy Actis High Offset stem, size 5, was then manually inserted into the proximal femur making sure to control rotation. It was then malleted into position with light blows, giving breaks to allow bone expansion and decrease risk of fracture. The selected Depuy Altrx Ceramic Head, size 36+1.5mm, was then placed onto the clean and dry trunnion and secured with impaction onto the tapered fit. The leg was brought back out of extension and adduction and reduced with traction and internal rotation. Stability was confirmed with no shuck at 90 degrees of external rotation and 30 degrees of extension. No impingement through range of motion arc. Final x-ray images were obtained with fluoroscopy to confirm adequate positioning and no intraoperative fracture. The deep tissues were thoroughly irrigated with Irrisept chlorhexadine solution. The capsule was then reapproximated with the previously placed Ethibond sutures. The TFL fascia was finally closed with a No. 2 Stratafix, barbed suture. Deep tissues were then reapproximated with 0 Vicryl and a running 2-0 Vicryl. The skin was closed with a running 4-0 Monocryl in a subcuticular fashion. This was reinforced with skin glue. A Mepilex silver dressing was applied. At the end of the case, all counts were correct. Nik was transferred to the hospital bed without difficulty and suffering no apparent complication. He has a good prognosis. Physical therapy will start today and without restrictions, weight-bearing as tolerated. Aspirin 81mg BID will be used for DVT prophylaxis. Date of Procedure: 09/23/24
--- NOTE | 2024-09-23 11:51 | W.PC.ACHO ---
Registration Status: Primary Language: Preferred Language: Medical / Surgical History (Last Reviewed 09/23/24 @ 06:52 by Drew Lee CRNA) FH: carotid endarterectomy Tobacco user PVD (peripheral vascular disease) Primary osteoarthritis Migraine headache Lumbago with sciatica, right side Lumbago with sciatica, left side Leg pain Inguinal hernia, left Hypertensive disorder Chronic pain GERD (gastroesophageal reflux disease) Dyslipidemia DDD (degenerative disc disease), lumbar CVA (cerebral vascular accident) Blood clotting disorder Back pain (Last Reviewed 09/23/24 @ 06:52 by Drew Lee CRNA) H/O hernia repair Most Recent Vital Signs Temperature 37 C 09/23/24 11:42 Temperature Source Temporal Artery Scan 09/23/24 11:42 Pulse 61 09/23/24 11:42 Pulse Rhythm Regular 09/23/24 06:33 Pulse 65 09/23/24 11:21 Respiratory Rate 14 09/23/24 11:42 Respiratory Depth Normal 09/23/24 06:33 Blood Pressure 109/72 09/23/24 11:42 Blood Pressure Mean 84 09/23/24 11:42 Pulse Oximetry 96 09/23/24 11:42 Respiratory End-tidal CO2 30 09/23/24 11:21 Oxygen Delivery Method Room Air 09/23/24 11:42 Oxygen Flow Rate 0 09/23/24 11:42 Pain Level 0 09/23/24 11:43 Allergies Penicillins Allergy (Mild, Verified 09/23/24 06:28) Skin Rash Active Medications Generic Name Dose Route Start Last Admin Trade Name Avilaq PRN Reason Stop Dose Admin Acetaminophen 1,000 mg 09/23/24 06:00 09/23/24 06:38 Acetaminophen 500 Mg Tab PO 09/23/24 23:59 1,000 mg PREOP ROCCO Administration Celecoxib 400 mg 09/23/24 06:00 09/23/24 06:38 Celecoxib 200 Mg Cap PO 09/23/24 23:59 400 mg PREOP ROCCO Administration Ringer's Solution 1,000 mls @ 80 mls/hr 09/23/24 06:00 09/23/24 11:13 IV 09/23/24 23:59 80 mls/hr INFUSION ROCCO Infusion Cefazolin Sodium/Dextrose 2 gm in 50 mls @ 100 mls/hr 09/23/24 06:00 09/23/24 08:18 Ancef Duplex IVPB 09/23/24 23:59 Infused PREOP ROCCO Infusion Tranexamic Acid/Sodium Chloride 1,000 mg in 100 mls @ 600 mls/hr 09/23/24 06:00 09/23/24 08:17 IVPB 09/23/24 23:59 Infused PREOP ROCCO Infusion Tranexamic Acid/Sodium Chloride 1,000 mg in 100 mls @ 600 mls/hr 09/23/24 06:00 09/23/24 09:22 IVPB 09/23/24 23:59 Infused DIRECTED ROCCO Infusion IV IV Catheter Type [Right Peripheral IV Forearm] IV Catheter Gauge [Right 20 Forearm] Diet Orders Category Date Time Status Regular/Normal [DIET] Nutrition 09/23/24 Lunch Active Diagnostics 09/23/24 Range/Units 07:12 WBC 7.30 (4.4-10.8) 10^3/uL RBC 4.16 L (4.36-5.78) 10^6/uL Hgb 13.7 (13.5-17.5) g/dL Hct 41.9 (40.0-50.0) % MCV 101 H (80-95) fL MCH 32.9 (27.0-33.0) pg MCHC 32.7 (32.0-36.0) % RDW 12.0 (11.8-14.1) % Plt Count 248 (130-400) 10^3/uL MPV 8.8 (8.0-11.0) fL Sodium 138 (136-145) mmol/L Potassium 4.6 (3.5-5.1) mmol/L Chloride 102 (98-107) mmol/L Carbon Dioxide 29.2 (21.0-32.0) mmol/L Anion Gap 6.8 (3-11) mmol/L BUN 33 H (7-18) mg/dL Creatinine 0.9 (0.70-1.30) mg/dL Est GFR (CKD-EPI 2020) 95.97 (mL/min/1.73m2) Glucose 94 (74-106) mg/dL Calcium 9.2 (8.5-10.1) mg/dL ABO/Rh A Negative Antibody Screen NEGATIVE Intake and Output - 24 Hour Total 08/28/24 15:05 thru 09/23/24 11:13 Intake Total 1050 Output Total 400 Balance 650 Weight 52.2 kg Intake: IV 1050 Output: Estimated Blood Loss 400 Other: Emesis Description None v v v v v v v v v Sending and/or Receiving Nurses: Please use comment section below to note any information pertinent to the patient hand-off not included above. Information / Comments: Received report from PACU nurse. Pt had bilateral hip replacement. He woke up needing alot of supplemental o2 but after waking up a little more was sating at 98% on RA. Once on floor VS were taken on arrival and will be taken per protocol s/p surgical procedure. Pt denied any pain at this time. Pt was very cold when waking up from surgery and a bear hugger was applied. he has no more complaints of being cold and shivering has subsided. Report received from:
--- NOTE | 2024-09-23 13:47 | W.ANESPOSTOP ---
Postoperative Evaluation Date, Time and Location Date Performed: 09/23/24 Time Performed: 13:53 Patient Location: Med/Surg Vital Signs Most Recent Imported Vital Signs: Most Recent Vital Signs Temp Pulse Resp BP Pulse Ox 37.1 C 66 14 112/74 97 09/23/24 12:15 09/23/24 12:15 09/23/24 12:15 09/23/24 12:15 09/23/24 12:15 Pain Score Most Recent Pain Score: Most Recent Pain Score Pain Level [Bilateral Hip] 0 09/23/24 12:53 Pain Level 0 09/23/24 11:05 Assessment Mental Status: Awake (Alert & Oriented to Patient Baseline) Airway and Respiratory Function: Patent airway with normal (patient baseline) respiratory exam Cardiovascular Function: Hemodynamically Stable Hydration Status: Adequately Hydrated Nausea & Vomiting: No Nausea or Vomiting Pain: Pt. Denies Any Pain Peripheral Nerve Block: Patient did not receive a nerve block
[2024-09-23] MEDS: ceFAZolin 1 GM/50 ML BAG IVPB ×2 (14:07→22:00)
[2024-09-23] MEDS: HYDROmorphone 2 MG/ML SYR 0.5 MG IVP (16:29)
--- NOTE | 2024-09-23 16:38 | PT.INIE ---
PT Notes Visit Reasons: Bilateral hip DJD Physical Therapy Inpatient Initial Evaluation Date: 09/23/2024 Referring Doctor: Julia Bender PT Orders: PT CONSULT: S/P Ortho Surgery Precautions: Fall. Standard. WBAT on B LE with AD. Patient Profile/Admitting Diagnosis: Patient is a 64-year-old male with degenerative joint disease of B hips and is S/P bilateral total hip arthroplasties on postoperative day 0. PMHX: All Active Problems Osteoarthritis, hip, bilateral (Acute) Hip pain, bilateral (Acute) Lumbar radiculitis (Acute) Mechanical low back pain (Acute) Lumbar spondylosis (Acute) Vertebrogenic low back pain (Acute) Medical History FH: carotid endarterectomy Tobacco user PVD (peripheral vascular disease) Primary osteoarthritis Migraine headache Lumbago with sciatica, right side Lumbago with sciatica, left side Leg pain Inguinal hernia, left Hypertensive disorder Chronic pain GERD (gastroesophageal reflux disease) Dyslipidemia DDD (degenerative disc disease), lumbar CVA (cerebral vascular accident) Blood clotting disorder Back pain Surgical History H/O hernia repair Social History/Home Situation: Lives alone in an apartment with 5 steps to enter and a flight of steps to the basement. Rails are on B sides of said steps. 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 Indepednent without AD. No longer connected to family members. Tobacco user. Equipment Owned/DME: None Subjective: Verbalized that he had been hobbling along in the past two years with a chroninc back issue and arthrtis in B hips. He finally is looking forward to moving better after today's surgery. Complained of pain about 3-4/10 in the low back at rest and while walking. Denied headache, chest pain, and lightheadedness throughout session. Objective: General Observation: Resting in bed. SCDs to B legs. Mepilex Ag over surgical incisions. IV access through L brachium. Mejia catheter in place. Mental Status: Alert and oriented as to person, place, time, and purpose. Able to pay attention, focus, and respond appropriately. Pain: As above Vital Signs: Closely monitored by nursing staff ROM: Right Lower Extremity: Hip flexion allowed up to 90 degrees with end of range discomfort. Hip abduction WFL. Knee flexion 10 degrees to 90 degrees. Ankle dorsiflexion WFL. Ankle plantarflexion WFL. Left Lower Extremity: Hip flexion allowed up to 90 degrees with end of range discomfort. Hip abduction WFL. Knee flexion 10 degrees to 90 degrees. Ankle dorsiflexion WFL. Ankle plantarflexion WFL. Strength: Right Lower Extremity: Hip flexors 3-/5. Hip abductors 3-/5. Knee flexors 3-/5. Knee extensors 3-/5. Ankle dorsiflexors 4-/5. Ankle plantarflexors 4-/5. Left Lower Extremity: Hip flexors 3-/5. Hip abductors 3-/5. Knee flexors 3-/5. Knee extensors 3-/5. Ankle dorsiflexors 4-/5. Ankle plantarflexors 4-/5. Bed Mobility/Transfers: Minimal cueing provided for use of B hands as needed for support, movement sequence, AD management, and posture to reduce fall risk and minimize pain report Supine to sit stand by assist, movement slowed down and initially cautious Sit to stand contact guard assist with FWW Stand to sit contact guard assist with FWW Bed to reclining chair contact guard assist with FWW Gait: Facilitate safe and correct performance of level surface ambulation covering a distance of 120 feet with step to gait pattern requiring contact-guard assist and wheelchair follow by PT. Kylee decreased. KEELY decreased. Step height and length decreased. No report of increased pain in B hips nor in the low bcak. Thoracic kyphosis. Stairs: TBA in the next session Balance: Static Sitting: Normal Dynamic Sitting: Normal Static Standing: Fair Dynamic Standing: Fair Special Tests: Mobility Limitations Standardized Measure [facility] AM-PAC 6 clicks Basic Mobility Inpatient Short Form: Raw Score: 18 CMS Score: 47% deficit Informed Consent/Education: Patient was instructed in purpose of PT consult and plan of care. Agreeable to proceed with established PT POC to achieve personal goals. Trained patient with correct performance of exercises below to maximize motor control, joint flexibility, soft tissue extensibility of the B hip musculature to facilitate return to independent functional mobility performance. Access Code: [email or web address] URL: [email or web address] Date: 09/23/2024 Prepared by: Michelle Chadwick Exercises - Gluteal Sets - 1 x daily - 7 x weekly - 1 sets - 10 reps - 5 hold - Supine Heel Slide - 1 x daily - 7 x weekly - 1 sets - 10 reps - 5 hold - Supine Ankle Pumps - 1 x daily - 7 x weekly - 1 sets - 10 reps - 5 hold - Seated March - 1 x daily - 7 x weekly - 1 sets - 10 reps - 5 hold - Seated Long Arc Quad - 1 x daily - 7 x weekly - 1 sets - 10 reps - 5 hold Assessment: Patient requires the use of a front-wheeled walker and assistance of 1 for all mobility ADL performance to maximize independence and reduce fall risk. Will reassess mobility level tomorrow morning when pain level improves. Will fit an issue front wheeled walker for home per protocol in the next session. Patient presents with clinical signs and symptoms consistent with current/admitting diagnoses that have resulted to mobility limitations, gait instability, generalized weakness, and overall ADL decline as demonstrated by the following impairment level findings: 1. Decreased strength to B hip major muscle groups 2. Impaired sitting/standing balance 3. Impaired activity tolerance 4. Limitation of joint range of motion in B hip flexion Impairments are contributing to the following functional limitations: 1. Decline in bed mobility skills 2. Decline in transfer skills 3. Difficulty with ambulation without assistive device and physical assistance 4. Increased completion time for mobility ADL performance 5. Increased risk for falls 6. Difficulty with managing steps alone safely Patient is assessed as a 93510 moderate complexity based on the following: History: 64-year-old male with past medical history as indicated above Examination: Demonstrable impairment in strength, balance, and mobility level with underlying impairments and functional limitations as exhibited above as well as deficit score of 47% utilizing the [facility] Mobility Inpatient Short Form Presentation: Evolving Decision Makin moderate complexity Goals: Goals X1 week 1. Supine-Sit independent 2. Sit-Supine independent 3. Sit-Stand independent 4. Stand-Sit independent with FWW 5. Bed-Chair independent with FWW 6. Chair-Bed independent with FWW 7. Independent gait on level surface with use of FWW for at least 300 feet without report of pain nor dyspnea 8. Independent stair negotiation while holding onto B rails for at least 12 steps without report of pain nor dyspnea 9. Independent with home exercise program 10. Good static and dynamic standing balance/tolerance Plan of Care/Treatment Plan: 1-2x/day, 7 days/week x 1 week. Plan of care has been reviewed with the STUDY LEAD providing the service under Physical Therapy direction. Initiate Physical Therapy intervention for pain management as needed, strengthening, bed mobility, transfers, gait, stairs, balance training, and use of assistive device. --Reassess mobility level in the next session. Fit and issue FWW and review HEP prior to discharge home. DISCHARGE RECOMMENDATIONS: [] Home with no services [] [X] Home with services. Patient will benefit from home health PT services in order to progress mobility level using least restrictive assistive ambulatory device, assess home safety, identify additional equipment needs, and establish a functional maintenance program that will increase ability of patient to remain at home. [] Home with outpatient PT [] [] SNF for continued rehabilitation [] [] Care Home Care [] [] SNF versus LTC based on ability to participate and progress [] TREATMENT CODE/TIME: 97351 x 20 minutes for 1 unit, 975 three 0 x 14 minutes for 1 unit (16:38?17:12). Thank you for the opportunity to participate in the care of this patient. Michelle Chadwick PT, DPT, CLT [facility] [place], [place]
[2024-09-23] MEDS: Aspirin E.C. 81 MG TABEC PO (20:23)
[2024-09-23] MEDS: Celecoxib 200 MG CAP PO (20:23)
[2024-09-23] MEDS: oxyCODONE 5 MG TAB PO ×2 (21:59→22:45)
[2024-09-24 03:07] VITALS: BP 105/72; PULSE 94; RESP 15; TEMP 36.8; O2SAT 97
[2024-09-24] MEDS: oxyCODONE 5 MG TAB PO (06:02)
[2024-09-24] MEDS: ceFAZolin 1 GM/50 ML BAG IVPB (06:02)
[2024-09-24 07:21] VITALS: BP 123/80; PULSE 89; RESP 14; TEMP 36.4; O2SAT 99
--- NOTE | 2024-09-24 07:27 | W.PM.DS.N ---
Date of service: 09/24/24 Time of Service: 09:34 DS: Diagnosis Discharge Diagnosis (1) Hip pain, bilateral: Status: Acute Discharge Plan Disposition Patient Disposition: Home Condition: Good Discharge Details Reason For Visit: Bilateral hip DJD Admit Date/Time: 09/23/24 07:06 Admit Provider: Zbigniew Mcadams Attending Provider: Zbigniew Mcadams Primary Care Provider: Zach Olivas [facility] Hospital Course: Patient was admitted to the medical/surgical floor following the procedure. The surgery was tolerated well without any notable medical, surgical, or anesthetic complications. Mobilization began postoperatively. He was voiding spontaneously. Vitals were stable. Physical therapy worked with the patient and was cleared for discharge home. No acute medical issues. Pain was controlled on oral regimen. He did have some bloating sensation and the feel like he needed a bowel movement with some nausea but this passed after ambulation. Home Meds and New Rx's Prescriptions: New celecoxib [Celebrex] 200 mg capsule 200 mg PO BID PRNQty: 60 0RF Rx Instructions: Take one tablet twice daily for pain and inflammation aspirin 81 mg tablet,delayed release (DR/EC) 81 mg PO BID 30 Days Qty: 60 0RF acetaminophen 500 mg tablet 1,000 mg PO Q8H PRN Qty: 90 0RF Rx Instructions: Take two tablets up to every 8 hours as needed for pain pantoprazole 40 mg tablet,delayed release (DR/EC) 40 mg PO DAILY Qty: 14 0RF dexamethasone 4 mg tablet 4 mg PO DAILY Qty: 2 0RF Rx Instructions: Take one tablet once daily for two days docusate sodium [Colace] 100 mg capsule 100 mg PO BID Qty: 28 0RF oxycodone 5 mg tablet 5 mg PO Q6H PRNQty: 12 0RF Rx Instructions: Take one tablet up to every 6 hours as needed for severe postoperative pain Continued bachudassd-rganilqwu-hwqpqcsvg 40-5-12.5 mg tablet 1 tab PO DAILY Discontinued acetaminophen [Tylenol Extra Strength] 500 mg tablet 500 mg PO Q6H PRN Discharge Instructions Additional Instructions: Total Hip Discharge Instructions Activity: The most important activity is to walk. You should try to take short walks a few times a day. You have no restrictions on movement or positioning, but do not try to force what you do. You will find some stiffness and weakness with hip flexion (lifting your knee). Do not try to strengthen this too early, continue to practice walking and stairs and this will come. - Outpatient physical therapy can be helpful to help return you to a normal gait and improve your flexibility and strength. This can start around 2 weeks. For some patients, it?s not necessary. Usually this is determined at the time of discharge or at the first post-operative visit. - You should wear the HOLLY hose on both legs for 2 weeks. Dressing: Keep the surgical dressing in place for at least one week. After the first week it may be removed and replace with light gauze and tape or nothing. It may get wet after 3 days but avoid soaking the dressing. If it gets wet, just lightly pat dry. It is important to always keep some gauze between skin folds, especially when you are sitting. Spend some time with the wound exposed when you are lying flat as the incision does wrinkle onto itself. Medications: - You should take Tylenol and an anti-inflammatory Celebrex as your primary pain control medications. If the Celebrex is too expensive or not covered, please call the office for another alternative (Advil/Ibuprofen or Naproxen/Aleve). - You have been prescribed a stronger pain medication Oxycodone for breakthrough pain, take as needed as prescribed. - You have also been prescribed a stomach acid reduction agent Pantoprozole to help reduce stomach acid and reflux. - You have also been prescribed Decadron to help with post-operative nausea and pain. You will take this for two days starting tomorrow. - You will be taking Aspirin 81mg twice a day for DVT prevention unless instructed otherwise. - If you have constipation you should take Colace (which has been prescribed) or Miralax (which is available [id number]). It takes most people 3-4 days to have a bowel movement. Follow-up: 2 weeks If you have any acute concerns or questions, please do not hesitate to contact the office at [phone]. You may contact Dr. Mcadams with any questions after hours through the hospital at [phone] or on his cell phone at [phone]. Referrals: Zbigniew Mcadams MD [ [facility] ST[facility]FF [facility]YSICIAN] - Activity:: Activity as Tolerated Equipment/Supplies:: Walker Diet:: As Tolerated Discharge Orders Discharge Orders: Discharge Order (Routine); Ordered 09/24/24 Ordered By: Zbigniew Mcadams DS: Summary Time Spent with Patient providing and/or coordinating discharge services: Less than 30 minutes Status at Discharge Functional status at discharge: uses cane/walker Overall status at discharge: patient is progressing back to baseline Mental Status: mental status grossly normal Speech and Movement: speech and movement normal Mood: congruent mood Affect: normal affect Quality:SDOH Health Related Social Needs: No Data to Display Exam Narrative Exam Narrative: Sitting up in the chair. NAD. AAOX3. Bilateral hips show dressings c/d/i. No significant pain to hip ER/IR/Flexion. SILT LFCN/Fem/Sciatic. +ADF/APF/EHL/FHL. Psych Mental Status: mental status grossly normal Speech and Movement: speech and movement normal Mood: congruent mood Affect: normal affect DS: Data Vitals/I&O Vitals and I&O: Vital Signs Temperature 97.9 F 09/23/24 06:33 Pulse 67 09/23/24 06:33 Pulse Rhythm Regular 09/23/24 06:33 Respiratory Rate 16 09/23/24 06:33 Respiratory Depth Normal 09/23/24 06:33 Blood Pressure 149/82 H 09/23/24 06:33 Pulse Oximetry 97 09/23/24 06:33 Oxygen Delivery Method Room Air 09/23/24 06:33 Oxygen Flow Rate 0 09/23/24 06:33 Pain Level 0 09/23/24 06:33 Intake & Output 09/22/24 09/22/24 09/23/24 11:59 23:59 11:59 Weight 121 lb 0.011 oz 121 lb 0.011 oz 115 lb 1.301 oz Data Completed and Pending Labs on day of discharge: Labs from last 24 hours 09/23/24 07:12 WBC 7.30 RBC 4.16 L Hgb 13.7 Hct 41.9 MCV 101 H MCH 32.9 MCHC 32.7 RDW 12.0 Plt Count 248 MPV 8.8 Sodium 138 Potassium 4.6 Chloride 102 Carbon Dioxide 29.2 Anion Gap 6.8 BUN 33 H Creatinine 0.9 Est GFR (CKD-EPI 2020) 95.97 Glucose 94 Calcium 9.2 ABO/Rh Pending Antibody Screen Pending [facility] All Active Problems History of total replacement of both hip joints (Acute) Hip pain, bilateral (Acute) Lumbar radiculitis (Acute) Mechanical low back pain (Acute) Lumbar spondylosis (Acute) Vertebrogenic low back pain (Acute) Medical History FH: carotid endarterectomy Tobacco user PVD (peripheral vascular disease) Primary osteoarthritis Migraine headache Lumbago with sciatica, right side Lumbago with sciatica, left side Leg pain Inguinal hernia, left Hypertensive disorder Chronic pain GERD (gastroesophageal reflux disease) Dyslipidemia DDD (degenerative disc disease), lumbar CVA (cerebral vascular accident) 2014 Blood clotting disorder pt. states he is unsure Back pain Surgical History H/O hernia repair Family History Mother COPD (chronic obstructive pulmonary disease) Father Heart attack Social History Smoking/Tobacco Use Status: Current every day Tobacco Type: cigarettes Smoking packs per day: 2 Smoking cigarettes per day: 40.0 Tobacco: How many years used: 40 Counseling given: patient declined Smoking risk assessment performed?: Yes Alcohol Intake: current Alcohol Intake frequency: a few times a week Alcohol type: beer and hard liquor Drug use: Daily Substance use type: marijuana (Last use 09/22/24) Details: pt. smoked cigarettes on the way to hospital today. Pt. reports marijuana use yesterday as well as alcohol. Housing: apartment Do you feel safe at home: Yes Do you feel safe in your relationship?: Yes Additional Social history: [employer] Time Spent with Patient Time Spent with Patient: <45 minutes Time was spent: preparing to see the patient(eg.review tests), obtaining and/or reviewing separately otained hiistory, counseling the patient and care coordination
[2024-09-24] MEDS: Pantoprazole 40 MG TABCR PO (07:46)
[2024-09-24] MEDS: Celecoxib 200 MG CAP PO (07:46)
[2024-09-24] MEDS: Aspirin E.C. 81 MG TABEC PO (07:46)
[2024-09-24] MEDS: Dexamethasone 4 MG TAB PO (07:46)
[2024-09-24] MEDS: Acetaminophen 500 MG TAB 1000 MG PO (07:47)
--- NOTE | 2024-09-24 08:44 | PTTR_ITS ---
PT Notes Visit Reasons: Bilateral hip DJD Physical Therapy Inpatient Treatment Note Date: 09/24/2024 Precautions: Fall. Standard. WBAT on B LE with AD. Subjective: Agreeable to trying out longer walking and doing the stairs for this session. Needed to use the bathroom after walk, patient was assisted back to room for a bowel movement and while PT was getting equipment for patient he had an episode of vomiting in the toilet. Treatment was halted and patient was approached later after taking nausea pill. Objective: General Observation: Resting in bed. Mepilex Ag over surgical incisions. IV access through L brachium. Mejia catheter in place. Mental Status: Alert and oriented as to person, place, time, and purpose. Able to pay attention, focus, and respond appropriately. Pain: As above Vital Signs: Closely monitored by nursing staff Bed Mobility/Transfers: Minimal cueing provided for use of B hands as needed for support, movement sequence, AD management, and posture to reduce fall risk and minimize pain report Supine to sit stand by assist, movement slowed down and initially cautious Sit to stand stand by assist with FWW Stand to sit stand by assist with FWW Bed to reclining chair stand by assist with FWW Gait: Facilitate safe and correct performance of level surface ambulation covering a d istance of 250 feet with step to gait pattern requiring stand by assist and wheelchair follow by PT. Kylee decreased. KEELY decreased. Step height and length decreased. Decreased Df on B sides. No report of increased pain in B hips nor in the low bcak. Thoracic kyphosis. Moderate verbal cueing provided for walker management and posture Stairs: Guided patient with safe and correct negotiation of 6 x 4-inch steps and 4 x 2- inch steps while holding onto B rails with stand by assist with mininal verbal cueing for correct limb movement sequence, posture, and hand placement. Balance: Static Sitting: Normal Dynamic Sitting: Normal Static Standing: Fair Dynamic Standing: Fair THERA EX: Reviewed with patient correct performance of exercises below to maximize motor control, joint flexibility, soft tissue extensibility of the B hip musculature to facilitate return to independent functional mobility performance. Access Code: [email or web address] URL: [email or web address] Date: 09/23/2024 Prepared by: Michelle Chadwick Exercises - Gluteal Sets - 1 x daily - 7 x weekly - 1 sets - 10 reps - 5 hold - Supine Heel Slide - 1 x daily - 7 x weekly - 1 sets - 10 reps - 5 hold - Supine Ankle Pumps - 1 x daily - 7 x weekly - 1 sets - 10 reps - 5 hold - Seated March - 1 x daily - 7 x weekly - 1 sets - 10 reps - 5 hold - Seated Long Arc Quad - 1 x daily - 7 x weekly - 1 sets - 10 reps - 5 hold Assessment: Patient was fitted and issued a front-wheeled walker, long-handled shoe horn, medical equipment technician, and sock aid to allow for independent performance of self-care and dressing at home without undue pain. He was able to tolerate level surface ambulation but an epsiode of nausea and vomiting needed a second visit in the morning to ensure that stairs training was done. Pain minimally limits mobility performance. DISCHARGE RECOMMENDATIONS: [] Home with no services [] [X] Home with services. Patient will benefit from home health PT services in order to progress mobility level using least restrictive assistive ambulatory device, assess home safety, identify additional equipment needs, and establish a functional maintenance program that will increase ability of patient to remain at home. [] Home with outpatient PT [] [] SNF for continued rehabilitation [] [] Correction Care [] [] SNF versus LTC based on ability to participate and progress [] TREATMENT CODE/TIME: 78173 x 49 minutes for 3 unit (08:44?09:07 and 10:25-10:51).
[2024-09-24] MEDS: HYDROmorphone 2 MG/ML SYR 0.5 MG IVP (09:16)
[2024-09-24] MEDS: Ondansetron 4 MG/2 ML VIAL IVP (09:16)
[2024-09-24] MEDS: Docusate Sodium 100 MG CAP PO (09:48)
[2024-09-24 11:21] VITALS: BP 110/68; PULSE 84; RESP 17; TEMP 36.7; O2SAT 96
== END 2024-09-24 11:36 | disposition home or self-care (01) ==
LOC: SUR 07:08 → MS 11:35
PROVIDERS: Admitting Provider Student in an Organized Health Care Education/Training Program; Visit Provider Student in an Organized Health Care Education/Training Program
PROC: 0SR90JZ Replacement of Right Hip Joint with Synthetic Substitute, Open Approach (ICD-10-PCS; CPT 27130; principal; 2024-09-23 07:30)
DX: M16.0 Bilateral primary osteoarthritis of hip (principal); D68.9 Coagulation defect, unspecified; I73.9 Peripheral vascular disease, unspecified; G43.909 Migraine, unspecified, not intractable, without status migrainosus; M54.42 Lumbago with sciatica, left side; M54.41 Lumbago with sciatica, right side; I10 Essential (primary) hypertension; G89.29 Other chronic pain; K21.9 Gastro-esophageal reflux disease without esophagitis; E78.5 Hyperlipidemia, unspecified; Z86.73 Personal history of transient ischemic attack (TIA), and cerebral infarction without residual deficits; F12.90 Cannabis use, unspecified, uncomplicated; F17.210 Nicotine dependence, cigarettes, uncomplicated; Z79.899 Other long term (current) drug therapy
CPT/HCPCS: 27130; 20985; 36415; 80048; 85027; 86850; 86900; 86901; 97110; 97162; 97530; 73501; C1776; G0378; J0665; J0690; J1100; J1171; J2003; J2250; J2371; J2405; J2704; J8540

== ENCOUNTER 2024-10-06 14:39 | Outpatient (CLI) | payer MEDICAID, SELFPAY ==
--- NOTE | 2024-10-06 14:00 | DI.RAD_ITS ---
Exam(s) XR HIP PELVIS ADULT BL EXAM: XR HIP PELVIS ADULT BL CLINICAL HISTORY: 1st post op S/P BILAT THAs. TECHNIQUE: 2D digital imaging was performed. Three views. COMPARISON: CR XR PELVIS AP from 08/28/2024 XA XR HIP LT IN OR from 09/23/2024 XA XR HIP RT IN OR from 09/23/2024 FINDINGS: BONES: Are bilateral hip prostheses which show satisfactory alignment. No acute fracture is present. No bony destructive lesion is seen. JOINTS: No dislocation present. SI joints and pubic symphysis show mild degenerative changes.. SOFT TISSUE: Vascular calcifications. IMPRESSION: Stable appearance of bilateral hip prostheses. DATA REPOSITORY: RADIATION DOSE DELIVERED:
== END 2024-10-06 14:40 | disposition home or self-care (01) ==
LOC: DIORS 14:39
PROVIDERS: Visit Provider Student in an Organized Health Care Education/Training Program
DX: Z96.643 Presence of artificial hip joint, bilateral (principal)
CPT/HCPCS: 73521

== ENCOUNTER 2025-03-11 12:16 | Outpatient (CLI) | payer MEDICAID, SELFPAY ==
[2025-03-11 11:53] VITALS: BP 159/91; PULSE 58; RESP 18; TEMP 36.7; O2SAT 100
--- NOTE | 2025-03-11 12:43 | PDOC.PAIN ---
Date of service: 03/11/25 Time of Service: 13:05 Pain Managment Procedure Note Procedure Note Procedure Note: Caudal Epidural Steroid Injection ? Location: Caudal Epidural Space ?Pre-procedure Diagnosis: M54.17-Radiculopathy, lumbosacral region ? Post-procedure Diagnosis:? The same as above ? Sedation:? none? Estimated blood loss:? less than 2 ml ?Surgeon:? Dedrick Nava MD COMMENT: Patient had previous caudal epidural steroid injection on 07/09/2024. 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 His hips are much better. He is still having back pain and leg pain. ? Procedure Detail:?? The procedure and potential risks were explained to the patient and informed written consent was obtained. The patient was escorted to the procedure room and placed in the prone position. Pillows were utilized for proper positioning and comfort. Time out was performed in the procedure room with nursing staff confirming the patient's identity, procedure to be performed, allergies, and any blood thinning or anti-platelet medications. The patient's lower back/coccyx area was prepped with ChloraPrep x2 and draped in a sterile fashion. Sterile technique was maintained throughout the procedure.? Sterile gloves were used, a face mask was worn, and new single dose vials of all medications were used with the top being swabbed with alcohol and given time to dry prior to withdrawal of medication. Subcutaneous 1% lidocaine was instilled into the superficial soft tissue of the patient's lower back/coccyx area for local anesthesia using a 25-gauge 1.5 inch needle. Under fluoroscopic guidance a 17G Tuohy needle was placed within the caudal canal. An 19 G Arrow catheter was directed cephalad to the RIGHT at L5. 1ml of Omnipaque 240 contrast was injected showing appropriate spread in the caudal epidural space.? Placement was confirmed in AP and lateral projection. 80 mg of Depo-Medrol and 3 ml saline was injected without complication. The needle and catheter was removed intact. The patient tolerated the procedure well and was transported to the recovery area for observation and discharge instructions. Permanent images saved and recorded. Plan:? Follow prn. PAIN: PRE-PROCEDURE 810 POST-PROCEDURE 0/10 COMMENT: Could repeat as needed or consider transforaminal injections at L5 or medial branch blocks and radiofrequency ablation for his axial pain. Coding Conscious Sedation used for procedure: No CPT Codes: Inj Spine L/S w/Imaging - [id number] ([id number] ~G) Additional Codes: Date of Service () Diagnoses: M54.17-Radiculopathy, lumbosacral region
[2025-03-11 12:44] VITALS: PULSE 68
[2025-03-11 12:50] VITALS: PULSE 76; O2SAT 99
--- NOTE | 2025-03-11 12:59 | DI.RAD_ITS ---
Exam(s) XR PAIN CLINIC LUMBAR SP 2V EXAM: XR PAIN CLINIC LUMBAR SP 2V CLINICAL HISTORY: DX: Lumbar Radiculopathy. TECHNIQUE: Fluoroscopy was provided for the referring physician for guidance with performing pain clinic injection procedure. COMPARISON: No exams were available for comparison FINDINGS: Please see procedure note for details. Fluoro time: 25.5 seconds RADIATION DOSE DELIVERED: Ka,r=3.7 mGy
[2025-03-11] MEDS: Epidural Tray 1 EACH MC (13:01)
[2025-03-11] MEDS: Omnipaque 240 MG/ML 50 ML BTL IJ (13:01)
[2025-03-11] MEDS: Normal Saline 20 ML VIAL IJ (13:02)
[2025-03-11] MEDS: methylPREDNISolone ACETATE 40 MG/ML VIAL IJ (13:02)
== END 2025-03-11 12:17 | disposition home or self-care (01) ==
LOC: PC 12:16
PROVIDERS: Visit Provider Anesthesiology Pain Medicine
DX: M54.17 Radiculopathy, lumbosacral region (principal)
CPT/HCPCS: 62323; 72100; J1010; Q9967